=== PATIENT | male | born 1940 | race Caucasian/White ===

== ENCOUNTER 2017-12-19 22:24 | Inpatient (IN) | payer MEDICARE, OTHER ==
[~2017-12-19] VITALS: Ht 175.3 cm; Wt 120.2 kg
[2017-12-20] VITALS (11 sets, daily range): BP systolic 82–132; BP diastolic 47–61; PULSE 74–102; RESP 21–30; TEMP 98–102; O2SAT 95–100
[2017-12-20] MEDS: SODIUM CHLOR 0.9% 1000 ML INJ 1,000 ML IV SCH ×2 (01:50→19:00)
[2017-12-20] MEDS ORDERED: ACETAMINOPHEN 325 MG TAB PO PRN (02:00)
[2017-12-20] MEDS ORDERED: CHLORHEXIDINE GLUCONATE 2 % 1 PACK (2 CLOTHS) TOP PRN (02:00)
[2017-12-20] MEDS ORDERED: LACTULOSE SYRUP 20 GM/30 ML CUP PO PRN (02:00)
[2017-12-20] MEDS ORDERED: SODIUM CHLORIDE 0.9% FLUSH 10 ML FLUSH IV FLUSH PRN (02:00)
[2017-12-20] MEDS ORDERED: SENNOSIDES 8.6 MG TAB PO PRN (02:00)
[2017-12-20] MEDS ORDERED: BISACODYL 10 MG SUPP RECTAL PRN (02:00)
[2017-12-20] MEDS ORDERED: NURSING INFORMATION XX SCH (02:00)
[2017-12-20] MEDS ORDERED: ONDANSETRON HCL 4 MG/2 ML VIAL IV PUSH PRN (02:00)
[2017-12-20] MEDS ORDERED: MORPHINE SULFATE 4 MG/ML INJ IV PUSH PRN (02:00)
[2017-12-20] MEDS ORDERED: ACETAMINOPHEN/HYDROcodone 325 MG/5 MG TAB PO PRN (02:00)
[2017-12-20] MEDS ORDERED: MAGNESIUM HYDROXIDE SUSP 30 ML CUP PO PRN (02:00)
[2017-12-20] MEDS ORDERED: RESP: ALBUTEROL 2.5 MG/3 ML NEB (PRN) INH (02:00)
--- NOTE | 2017-12-20 02:14 | HHI.HP ---
HPI Service Critical Care Medicine Primary Care Physician Unknown Admission Diagnosis Right hemothorax Diagnosis: (1) Hemothorax, right Diagnosis: Principal (2) Paroxysmal atrial fibrillation Diagnosis: Principal (3) Acute blood loss anemia Diagnosis: Principal (4) Gastroesophageal reflux disease Diagnosis: Secondary (5) Hypertension Diagnosis: Principal (6) Osteoarthritis (7) Gastrointestinal stromal tumor (GIST) of duodenum Diagnosis: Secondary (8) Non Hodgkin's lymphoma Diagnosis: Principal (9) Hyponatremia Diagnosis: Secondary (10) Leukocytosis Diagnosis: Secondary (11) Essential hypertension Diagnosis: Secondary (12) Chronic kidney disease, stage 3a Diagnosis: Secondary (13) Gout Diagnosis: Secondary Chief Complaint: Presents from [facility] with large right hemothorax Travel History International Travel<30 Days: No Contact w/Intl Traveler <30 Da: No Traveled to Known Affected Are: No History of Present Illness This is a 77-year-old male. Full code. Date of admission 12/20/2017. 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 Patient received chemotherapy was noted to have a CD 38 expression by flow cytometry indicative of an unfavorable prognostic Jarvis per report. 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 Chet Chávez, paroxysmal atrial fibrillation with a [id number] of 3, Yesterday, patient presented to [facility] with shortness of breath. On chest x-ray patient was noted to have a large right pleural effusion. His apixaban was held and today patient had a right-sided chest tube placed. My 60 cm's was sent. For cultures. Studies are still pending. Patient has had 4 L of blood since placement. Patient received [facility] that facility was transferred here for possible cardiothoracic intervention. Patient is currently on 6 L simple mask at the protecting his airway. CT thorax at this facility is currently pending. Review of Systems Constitutional: COMPLAINS OF: Fatigue, DENIES: Weight gain, Weight loss Endocrine: DENIES: Polydipsia Eyes: DENIES: Diplopia Ears, nose, mouth, throat: DENIES: Tinnitus Respiratory: COMPLAINS OF: Cough, Shortness of breath, DENIES: Wheezing, Hemoptysis Cardiovascular: DENIES: Chest pain Gastrointestinal: DENIES: Abdominal pain, Black stools Genitourinary: DENIES: Dysuria, Nocturia Musculoskeletal: COMPLAINS OF: Joint pain Integumentary: DENIES: Abnormal pigmentation Hematologic/lymphatic: COMPLAINS OF: Bruising Immunologic/allergic: DENIES: Eczema Neurologic: DENIES: Abnormal gait, Headache Psychiatric: DENIES: Anxiety, Confusion Past Family Social History Allergies: Coded Allergies: No Known Allergies (Unverified , 12/20/17) Past Medical History Duodenal gastrointestinal stromal tumor Paroxysmal atrial fibrillation nonvalvular with a [id number] score 3 Essential hypertension Hyperlipidemia Follicular lymphoma grade IIIa/non-Hodgkin's lymphoma Gastroesophageal reflux disease Degenerative joint disease Osteoarthritis Elevated BMI Allergic rhinitis Constipation Chronic kidney disease stage IIIa History of nephrolithiasis Chronic oxycodone use Gout Past Surgical History Left total knee replacement Excision wide of melanoma 1976 of back without recurrence Tonsillectomy and adenoidectomy Rectal fissure repair [facility] status post resection of a fourth part duodenal gastrointestinal stromal tumor with subsequent chemotherapy with Gleevec Left vena port Reported Medications Allopurinol 300 mg p.o. every morning Amlodipine 5 mg p.o. daily Cholecalciferol 1000 units p.o. daily Dronedarone 400 mg p.o. twice daily Multivitamin 1 tablet daily Oxycodone/acetaminophen 10/325 1 tablet twice daily as needed Potassium chloride 10 mg p.o. twice daily Spironolactone 50 mg p.o. every morning Omeprazole 20 mg p.o. daily Hydrochlorothiazide 50 mg p.o. daily Apixaban 5 mg p.o. twice daily Lisinopril 40 mg p.o. daily Labetalol 200 mg p.o. twice daily Ibrutinub 140 mg p.o. daily Active Ordered Medications Reviewed in EMR Family History Father 85 with hypertension/CVA. Mother age 88 diagnosed heart disease. One sister alive in good health Social History Patient is single. is . Independent living. No alcohol tobacco or IV drug use documented Physical Exam Physical Exam GENERAL: 77-year-old male currently on a simple mask and some mild respiratory distress SKIN: Warm and dry. HEAD: Atraumatic. Normocephalic. EYES: Pupils equal and round about 3 mm bilaterally and reactive. No scleral icterus. No injection or drainage. ENT: No nasal bleeding or discharge. Mucous membranes pink and moist. NECK: Trachea midline. No JVD. CARDIOVASCULAR: Tachycardic, IR. S1, S2. Positive S3. No S4. Without murmur RESPIRATORY: Coarse rhonchorous breath sounds appreciated bilaterally anteriorly posteriorly. Diminished breath sounds right lower lobe. Posteriorly /laterally on right side placed pigtail catheter/#10 Nepalese GASTROINTESTINAL: Abdomen soft, non-tender, nondistended. Hypoactive bowel sounds appreciated MUSCULOSKELETAL: Extremities with trace bilateral upper and lower extremity edema. No obvious deformities. NEUROLOGICAL: Awake and alert. No obvious cranial nerve deficits. Motor grossly within normal limits. Five out of 5 muscle strength in the arms and legs. Normal speech. Hard of hearing Septic Shock Reassessment Septic shock perfusion: reassessment completed Caprini VTE Risk Assessment Caprini VTE Risk Assessment: Mod/High Risk (score >= 2) VTE Pharm Contraindication: Active bleeding Caprini Risk Assessment Model Point Value = 1 Point Value = 2 Point Value = 3 Point Value = 5 Age 41-60 Minor surgery BMI > 25 kg/m2 Swollen legs Varicose veins or History of unexplained or recurrent spontaneous Oral contraceptives or hormone replacement Sepsis (< 1 month) Serious lung disease, including pneumonia (< 1 month) Abnormal pulmonary function Acute myocardial infarction Congestive heart failure (< 1 month) History of inflammatory bowel disease Medical patient at bed rest Age 61-74 Arthroscopic surgery Major open surgery (> 45 min) Laparoscopic surgery (> 45 min) Malignancy Confined to bed (> 72 hours) Immobilizing plaster cast Central venous access Age >= 75 History of VTE Family history of VTE Factor V Leiden Prothrombin [id number] Lupus anticoagulant Anticardiolipin antibodies Elevated serum homocysteine Heparin-induced thrombocytopenia Other congenital or acquired thrombophilia Stroke (< 1 month) Elective arthroplasty Hip, pelvis, or leg fracture Acute spinal cord injury (< 1 month) Prophylaxis Regimen Total Risk Factor Score Risk Level Prophylaxis Regimen 0-1 Low Early ambulation 2 Moderate Order ONE of the following: *Sequential Compression Device (SCD) *Heparin 5000 units SQ BID 3-4 Higher Order ONE of the following medications: *Heparin 5000 units SQ TID *Enoxaparin/Lovenox 40 mg SQ daily (WT < 150 kg, CrCl > 30 mL/min) *Enoxaparin/Lovenox 30 mg SQ daily (WT < 150 kg, CrCl > 10-29 mL/min) *Enoxaparin/Lovenox 30 mg SQ BID (WT < 150 kg, CrCl > 30 mL/min) AND/OR *Sequential Compression Device (SCD) 5 or more Highest Order ONE of the following medications: *Heparin 5000 units SQ TID (Preferred with Epidurals) *Enoxaparin/Lovenox 40 mg SQ daily (WT < 150 kg, CrCl > 30 mL/min) *Enoxaparin/Lovenox 30 mg SQ daily (WT < 150 kg, CrCl > 10-29 mL/min) *Enoxaparin/Lovenox 30 mg SQ BID (WT < 150 kg, CrCl > 30 mL/min) AND *Sequential Compression Device (SCD) Assessment and Plan Assessment and Plan Neuro/Psych: Acetaminophen 650 mg p.o. every 6 hours as needed fever Hydrocodone/acetaminophen 5/325 1 tab acute 4 hours. Pain 1 through 5 Morphine sulfate 2 mg IV every 2 hours as needed pain 6-10 Previously on oxycodone/acetaminophen 10/325 1 tablet every 12 hours as needed pain CV: Paroxysmal atrial fibrillation with a [id number] VASc score of 3 Essential hypertension Dyslipidemia Continue dronedarone 400 mg p.o. twice daily/home medication Holding spironolactone 50 mg p.o. daily hydrochlorothiazide 50 mg p.o. daily Holding lisinopril 40 mg p.o. daily Holding amlodipine 5 mg p.o. daily/home medication Continue labetalol 200 mg p.o. twice daily but decrease to 100 mg twice daily with bleeding EKG/2D echocardiogram and troponin all pending Resp: Acute respiratory insufficiency Large right hemothorax CT thorax currently ordered. Results are pending Chest tube to -40 cm H2O. Noted placed at [facility] by IR 12/19 after holding apixaban 1 day Status post #10 Nepalese pigtail catheter placed by interventional radiology at [facility]. 4 L questionable output since placement GI: Gastroesophageal reflux disease History of duodenal gastrointestinal stromal tumor N.p.o. except for medication Pantoprazole for GI prophylaxis. On omeprazole 20 mg p.o. daily at home Docusate sodium/senna 1 tablet twice daily for bowel regimen : Goyal catheter if indicated for accurate I's and O's in a critically ill patient Endo: History of gout At home on allopurinol 300 mg p.o. daily. Adjust 100 mg daily Sliding scale insulin if indicated to maintain euglycemia Renal: Chronic kidney disease stage IIIa History of nephrolithiasis Creatinine 1.89 at [facility]. All results are currently pending Monitor urine output Accurate I's and O's Heme: Follicular lymphoma grade IIIa Chronic apixaban use Acute blood loss anemia Thrombocytopenia Leukocytosis History of duodenal gastrointestinal stromal tumor status post resection Patient has been typed and crossed CBC/coags currently pending Patient received [facility] unknown dosage per oral report at [facility]. Ibrutinib 140 mg daily currently on hold. Holding target specific oral anticoagulant in light of right hemothorax Consult medical oncology ID: Monitor for signs and sequelae of infection FEN: Hyponatremia Replace electrolytes as clinically indicated MSK: Osteoarthritis Degenerative joint disease Holding cholecalciferol 1000 units p.o. daily/home medication PT evaluate and treat Access -Utilize peripheral IV in her left vena port with Rivas needle Prophylaxis -GI -pantoprazole -DVT -SCD/holding pharmacological prophylaxis in light of right hemothorax Critical Care: The total critical care time was 35 minutes. Time to perform other separately billable procedures was not included in the critical care time. Code Status Full code Discussed Condition With Patient. Care plan discussed and all questions answered. Problem Qualifiers (1) Gastroesophageal reflux disease: Qualified Codes: K21.9 - Gastro-esophageal reflux disease without esophagitis (2) Hypertension: Qualified Codes: I10 - Essential (primary) hypertension (3) Osteoarthritis: Qualified Codes: M19.90 - Unspecified osteoarthritis, unspecified site (4) Non Hodgkin's lymphoma: Qualified Codes: C85.90 - Non-Hodgkin lymphoma, unspecified, unspecified site (5) Leukocytosis: Qualified Codes: D72.829 - Elevated white blood cell count, unspecified (6) Gout: Qualified Codes: M10.9 - Gout, unspecified Brandin Wan MD December 20, 2017 02:14
--- NOTE | 2017-12-20 02:47 | RADRPT ---
EXAM DATE/TIME: 12/20/2017 02:17 [facility] COMPARISON: No previous studies available for comparison. INDICATIONS : Hemothorax; patient has a chest tube. RADIATION DOSE: 15.16 CTDIvol (mGy) MEDICAL HISTORY : Non-responsive. SURGICAL HISTORY : Non-responsive. ENCOUNTER: Initial ACUITY: 1 day PAIN SCALE: Non-responsive LOCATION: chest TECHNIQUE: Volumetric scanning of the chest was performed. Using automated exposure control and adjustment of t he mA and/or kV according to patient size, radiation dose was kept as low as reasonably achievable to obtain optimal diagnostic quality images. DICOM format image data is available electronically for r eview and comparison. Follow-up recommendations for detected pulmonary nodules are based at a minimum on nodule size and pa tient risk factors according to Fleischner Society Guidelines. FINDINGS: LUNGS: There is extensive primarily central airspace opacity on the right and mild atelectasis in the left l dahlia base. PLEURAE: Prominent diffuse lobular thickening of the pleura on the right consistent with extensive pleural juan antonio plastic disease. Minimal dependent fluid. Posterior lateral right base pigtail thoracostomy tube in p lace. MEDIASTINUM: Prominent subcarinal lymph node and smaller lymph nodes elsewhere in the central mediastinum. Minimal pericardial fluid. Coronary calcifications. AXILLAE: Moderate lymph node prominence in the left axilla. Minimal colby prominence in the right axilla. MUSCULOSKELETAL: Within normal limits for patient age. MISCELLANEOUS: Possible mesenteric root adenopathy. CONCLUSION: Abnormal CT chest appearance. We have no comparisons at this institution. Ted Portillo MD on December 20, 2017 at 2:40 Board Certified Radiologist. This report was verified electronically.
[2017-12-20] MEDS ORDERED: VANCOMYCIN INJ 1,000 MG in SODIUM CHLOR 0.9% 250 ML INJ 250 ML IV ONE ×2 (03:00→10:00)
[2017-12-20] MEDS ORDERED: AZITHROMYCIN INJ 500 MG in SODIUM CHLOR 0.9% 250 ML INJ 250 ML IV SCH (03:00)
[2017-12-20] MEDS ORDERED: CEFEPIME INJ 2,000 MG in SODIUM CHLORIDE 0.9% INJ 100 ML IV SCH (04:00)
[2017-12-20] MEDS: CHLORHEXIDINE GLUCONATE 2 % 1 PACK (2 CLOTHS) TOP SCH (04:00)
[2017-12-20 04:08] LABS: ALBUMIN 2.4 GM/DL (3.4-5.0); AST (GOT) 16 U/L (15-37); BICARBONATE 23.9 MEQ/L (21.0-32.0); BLOOD UREA NITROGEN 28 MG/DL (7-18); CALCIUM 8.5 MG/DL (8.5-10.1); CHLORIDE 101 MEQ/L (98-107); CHOLESTEROL 99 MG/DL (120-200); CREATININE 1.73 MG/DL (0.60-1.30); GLOMERULAR FILTRATION RATE 38 ML/MIN (>89); GLUCOSE,RANDOM 114 MG/DL (74-106); MAGNESIUM 1.7 MG/DL (1.5-2.5); PHOSPHORUS 3.2 MG/DL (2.5-4.9); SODIUM (NA) 136 MEQ/L (136-145); TRIGLYCERIDES 88 MG/DL (42-150)
[2017-12-20 04:17] LABS: ALKALINE PHOSPHATASE 85 U/L (45-117); ALT (GPT) 14 U/L (12-78); CHOLESTEROL/ HDL RATIO 2.66 RATIO; FREE T3 1.25 PG/ML (2.18-3.98); FREE T4 1.26 NG/DL (0.76-1.46); HDL CHOLESTEROL 37.2 MG/DL (40.0-60.0); LDL CHOLESTEROL 44 MG/DL (0-99); TOTAL BILIRUBIN ADULT 1.5 MG/DL (0.2-1.0); TOTAL PROTEIN 4.6 GM/DL (6.4-8.2)
[2017-12-20 04:23] LABS: HEMATOCRIT 41.2 % (39.0-51.0); HEMOGLOBIN 13.7 GM/DL (13.0-17.0); MEAN CELL VOLUME 93.4 FL (80.0-100.0); MEAN CORPUSCULAR HEMOGLOBIN 31.1 PG (27.0-34.0); MEAN CORPUSCULAR HGB CONC 33.3 % (32.0-36.0); MEAN PLATELET VOLUME 8.1 FL (7.0-11.0); PLATELET COUNT 159 TH/MM3 (150-450); RED BLOOD COUNT 4.41 MIL/MM3 (4.50-5.90); RED CELL DISTRIBUTION WIDTH 16.5 % (11.6-17.2); WHITE BLOOD COUNT 18.7 TH/MM3 (4.0-11.0)
[2017-12-20 04:55] LABS: INTERNATIONAL NORMALIZED RATIO 1.1 RATIO; PROTHROMBIN TIME - PATIENT 11.3 SEC (9.8-11.6)
[2017-12-20 05:20] LABS: BANDS 1 % (0-6); LYMPHOCYTES 17 % (9-44); MONOCYTES 7 % (0-8); NEUTROPHIL # MANUAL DIFF 13.8 TH/MM3 (1.8-7.7); POLYS (SEG NEUTROPHILS) 73 % (16-70)
[2017-12-20] MEDS ORDERED: NOREPINEPHRINE-DEXTROSE DRIP 250 ML IV ONE (05:23)
[2017-12-20] MEDS ORDERED: TERBUTALINE INJ 1 MG/ML AMP SQ PRN (05:30)
[2017-12-20] MEDS ORDERED: LACTATED RINGER'S 1000 ML INJ 1,000 ML IV ONE ×2 (05:30→06:45)
[2017-12-20] MEDS ORDERED: NOREPINEPHRINE INJ 4 MG in SODIUM CHLOR 0.9% 250 ML INJ 246 ML IV PRN (05:30)
[2017-12-20 07:00] LABS: TROPONIN I 0.02 NG/ML (0.02-0.05)
[2017-12-20 07:09] LABS: BILIRUBIN, URINE NEG (NEG); BLOOD, URINE SMALL (NEG); GLUCOSE,URINE NEG (NEG); KETONE, URINE NEG (NEG); NITRITE,URINE NEG (NEG); URINE COLOR YELLOW (YELLW/STRAW); URINE LEUKOCYTE ESTERASE NEG (NEG)
[2017-12-20 07:18] LABS: HYALINE CAST, URINE 8 /lpf (RARE); MUCUS URINE FEW /lpf (OCC); SQUAMOUS EPITHELIAL CELL URINE 1 /hpf (0-5)
[2017-12-20 07:42] LABS: CREATININE, RANDOM URINE 74.4 MG/DL
[2017-12-20 07:56] LABS: HEMATOCRIT 36.8 % (39.0-51.0); HEMOGLOBIN 12.4 GM/DL (13.0-17.0)
[2017-12-20] MEDS ORDERED: SODIUM CHLOR 0.9% 1000 ML INJ 1,000 ML IV ONE (08:00)
[2017-12-20] MEDS: PIPERACIL-TAZO 3.375 GM PREMIX 50 ML IV SCH ×3 (08:00→20:21)
[2017-12-20] MEDS ORDERED: Vancomycin Consult Pharmacy 1 EA OTHER SCH (08:00)
[2017-12-20] MEDS: VASOPRESSIN INJ 40 UNITS in DEXTROSE 5% IN WATER 100ML INJ 98 ML IV SCH ×2 (08:36)
[2017-12-20] MEDS: PANTOPRAZOLE SODIUM 40 MG VIAL IV PUSH SCH (09:00)
[2017-12-20] MEDS: DOCUSATE SODIUM 50 MG/SENNA 8.6 MG TAB PO SCH ×2 (09:00→20:22)
[2017-12-20] MEDS ORDERED: DRONEDARONE 400 MG TAB PO SCH (09:00)
[2017-12-20] MEDS: LABETALOL HCL 100 MG TAB PO SCH ×2 (09:00→20:22)
[2017-12-20] MEDS: ALLOPURINOL 100 MG TAB PO SCH (09:00)
[2017-12-20] MEDS: SODIUM CHLORIDE 0.9% FLUSH 10 ML FLUSH IV FLUSH SCH ×2 (09:00→20:51)
[2017-12-20] MEDS ORDERED: HYDROCORTISONE SOD SUCCINATE 250 MG VIAL IV SCH (10:00)
[2017-12-20] MEDS: methylPREDNISolone SOD SUCC 125 MG/2 ML VIAL IV PUSH SCH ×2 (10:15→20:22)
--- NOTE | 2017-12-20 10:58 | MB ---
cc: Awais Singh MD DATE: 12/20/2017 REASON FOR CONSULTATION: A 77-year-old male with a history of chronic lymphocytic leukemia, admitted with bilateral pulmonary infiltrates, hypotension and a working diagnosis of pneumonia. PATIENT PROFILE: The patient is a 77-year-old white male. He is single and . He was born in [place]. He has lived in [place] for 50 years. He is retired. He had worked for [employer]. 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 He had 1 son who is . The patient lives alone and is independent. HISTORY OF PRESENT ILLNESS: The patient is a 77-year-old male who was diagnosed with chronic lymphocytic leukemia in 2016. He was treated with chemotherapy for 6 months and I believe this was fludarabine, Cytoxan and Rituxan. Apparently, this worked for a while. Approximately a year ago, he was started on the drug ibrutinib at full dose. The dose had to be decreased where he is now taking only 1 tablet a day due to an interaction with Multaq which requires a lower dose. To the best of his knowledge, his disease is well controlled. He has had episodes of paroxysmal atrial fibrillation. For this reason, he takes Eliquis and the Multaq. The Eliquis dose has been reduced to 2.5 b.i.d. because of bleeding episodes. Ibrutinib is known to cause bleeding due to platelet dysfunction and this worsens the bleeding tendency when using eliquis He dates his immediate problem back to about 4 weeks ago. He developed rapid heart rate, cough and shortness of breath. All of these were progressive. He did not seek medical care until recently and then saw his rotary kiln operator who arranged for hospitalization, and he has subsequently been transferred to [facility], acutely ill with pneumonia on CT scan and hypotension. He is on multiple antibiotics. I have been asked to see him because of his current condition and also because of his history of chronic lymphocytic leukemia. PAST SURGICAL HISTORY: 1. Tonsillectomy. 2. Left knee replacement approximately 2006. 3. Gastrointestinal stromal cell tumor of the duodenum, removed in approximately 2002, followed by 2 years of Gleevec. 4. Melanoma removed from the back in 1971, without evidence of reoccurrence. PAST MEDICAL HISTORY: 1. Diagnosis of chronic lymphocytic leukemia made in approximately 2015, treated with I believe fludarabine, Cytoxan, and Rituxan and currently on ibrutinib for approximately 1 year, according to his history. 2. Atrial fibrillation. 3. Osteoarthritis. 4. Hypertension. 5. Gout. MEDICATIONS PRIOR TO ADMISSION: 1. Eliquis 2.5 p.o. b.i.d. 2. Allopurinol 300 a day. 3. Multaq 400 b.i.d. 4. Lisinopril. 5. Labetalol. 6. Amlodipine. 7. Ibrutinib 1 tablet a day. I am uncertain of the dose. ALLERGIES: NONE. FAMILY HISTORY: Noncontributory. REVIEW OF SYSTEMS: VISION: He has reading glasses. HEARING: Markedly diminished. CARDIOVASCULAR: Occasional palpitations. RESPIRATORY: Severe shortness of breath and cough. GASTROINTESTINAL: 100 pound weight loss over the past year and a half. He has had morbid obesity prior to this and believes that he may have lost weight following the of his son, where he just ate less and cared to eat less and appetite is also decreased. GENITOURINARY: No dysuria or frequency. MUSCULOSKELETAL: Some minor joint pain, primarily right knee. NEUROLOGIC: Generalized but not focal weakness. PSYCHIATRIC: Notable for depression over the loss of his son. DIAGNOSTIC STUDIES: Laboratory tests 12/20/2017: Hemoglobin 13; hematocrit 41; white count 18,000; platelets 159,000; 73% neutrophils and 17% lymphocytes. BUN 28, creatinine 1.73. Estimated GFR is 38 mL. Total bilirubin 1.5 with normal AST, ALT and alkaline phosphatase. Albumin is 2.4. Amylase 474. TSH 1.5. The most revealing study as the CT scan of the thorax without IV contrast. Images were reviewed. There is extensive bilateral interstitial airspace disease, much worse in the right than the left, with a ground glass appearance. There is pleural thickening on the right with some degree of nodularity. There are prominent subcarinal lymph nodes and smaller lymph nodes in the central mediastinum. He has a right-sided chest tube. The pleural fluid has been sent for cell count, diff and cytology. PHYSICAL EXAMINATION: GENERAL: Reveals a gentleman who is hard of hearing. He is wearing a mask. He is able to communicate effectively, impaired only by his difficulty with hearing. VITAL SIGNS: Blood pressure is 88/50, pulse is 90 and irregular, O2 saturation 94%. HEENT: Head is normocephalic. Sclerae and conjunctivae are normal. Oropharynx: There is some dried blood at the back of the pharynx. hard of hearing LYMPHATICS: I cannot any adenopathy. HEART: Irregularly irregular rhythm, rate 90. LUNGS: Reveal mild bilateral rhonchi. right chest tube ABDOMEN: Obese. No obvious hepatosplenomegaly. EXTREMITIES: Trace edema. MUSCULOSKELETAL: No bone pain. NEUROLOGIC: No weakness. Cognition, affect normal. SKIN: Unremarkable. ASSESSMENT AND PLAN: 1. The patient presents with a 4-week history of cough, shortness of breath, no fever, and no sputum production. He has extensive infiltrates in the lung, more so on the right than the left. What is odd is that there has been no fever or sputum production. Infectious pneumonia is certainly a possibility, especially given the hypotension and rapid deterioration. Another possibility would be an inflammatory pneumonitis, which has been progressive. There are a number of case reports of this occurring with ibrutinib and it also can occur with Multaq. He does not have any lobar consolidation and I feel that this possibility needs to be entertained and therefore recommendations would be: A. Discontinue Multaq. B. Discontinue ibrutinib. C. Treat with steroids. D. It is certainly reasonable to continue the antibiotics as we cannot afford to miss anything. E: if no improvement consider viral/fungal infection 2. He has a history of chronic lymphocytic leukemia. This is the same as small lymphocytic lymphoma. He has adenopathy in the mediastinum and a small amount of adenopathy in the axilla. I suspect that this is related to his underlying chronic lymphocytic leukemia/small lymphocytic lymphoma. This does not require intervention. He has had a pleural effusion. He has pleural thickening and he has nodularity along the pleura. I await the results of the cytology and cell count to determine whether this is active lymphoma/chronic lymphocytic leukemia or even the possibility of a Mello's transformation, which would be a large cell lymphoma. Above discussed with Critical Care- Se. Jean. We will follow with you and hopefully he will respond to the antibiotics, steroids and will await the flow cytometry. MD DOMINGO Galo/TEODORO , 10:03 AM , 10:57 AM HARJIT
[2017-12-20] MEDS: NOREPINEPHRINE INJ 4 MG in SODIUM CHLOR 0.9% 250 ML INJ 246 ML IV PRN ×2 (11:09→16:14)
[2017-12-20 12:45] LABS: PLEURAL FLUID RBC 100000 /MM3 (0-0); PLEURAL FLUID WBC 13000 /MM3 (0-10)
[2017-12-20 12:47] LABS: PLEURAL FLUID LYMPHS 90 %; PLEURAL FLUID MONOS 7 %; PLEURAL FLUID POLYS (SEGS) 3 %
[2017-12-20 13:40] LABS: HEMOGLOBIN 12.5 GM/DL (13.0-17.0)
--- NOTE | 2017-12-20 14:04 | EKG ---
Date Performed: 12/20/2017 Time Performed: 10:32:05 PTAGE: 77 years EKG: ATRIAL FIBRILLATION LOW QRS VOLTAGE INFERIOR MYOCARDIAL INFARCTION , PROBABLY OLD ANTEROSEP JAYDA MYOCARDIAL INFARCTION , PROBABLY OLD ABNORMAL ECG NO PREVIOUS TRACING DOCTOR: Sandor Schneider Interpretating Date/Time 12/20/2017 14:03:14
[2017-12-20 18:11] LABS: HEMATOCRIT 37.4 % (39.0-51.0); HEMOGLOBIN 12.6 GM/DL (13.0-17.0)
[2017-12-21] VITALS (14 sets, daily range): BP systolic 91–108; BP diastolic 50–63; PULSE 56–81; RESP 22–25; TEMP 97.4–98.3; O2SAT 93–97
[2017-12-21] MEDS: PIPERACIL-TAZO 3.375 GM PREMIX 50 ML IV SCH ×4 (00:59→20:47)
[2017-12-21] MEDS: AZITHROMYCIN INJ 500 MG in SODIUM CHLOR 0.9% 250 ML INJ 250 ML IV SCH (02:46)
[2017-12-21] MEDS: VASOPRESSIN INJ 40 UNITS in DEXTROSE 5% IN WATER 100ML INJ 98 ML IV SCH ×4 (02:48→14:02)
[2017-12-21] MEDS: NOREPINEPHRINE INJ 4 MG in SODIUM CHLOR 0.9% 250 ML INJ 246 ML IV PRN ×2 (02:52→22:30)
[2017-12-21] MEDS: CHLORHEXIDINE GLUCONATE 2 % 1 PACK (2 CLOTHS) TOP SCH (04:00)
[2017-12-21 05:15] LABS: AUTOMATED NEUTROPHIL # 7.4 TH/MM3 (1.8-7.7); BASOPHIL # 0.1 TH/MM3 (0-0.2); BASOPHIL % 0.4 % (0.0-2.0); HEMATOCRIT 33.7 % (39.0-51.0); HEMOGLOBIN 11.4 GM/DL (13.0-17.0); LYMPH % 52.4 % (9.0-44.0); LYMPHOCYTE # 9.2 TH/MM3 (1.0-4.8); MEAN CELL VOLUME 93.5 FL (80.0-100.0); MEAN CORPUSCULAR HEMOGLOBIN 31.7 PG (27.0-34.0); MEAN CORPUSCULAR HGB CONC 33.9 % (32.0-36.0); MEAN PLATELET VOLUME 7.6 FL (7.0-11.0); MONO % 5.2 % (0.0-8.0); MONOCYTE # 0.9 TH/MM3 (0-0.9); PLATELET COUNT 157 TH/MM3 (150-450); RED BLOOD COUNT 3.61 MIL/MM3 (4.50-5.90); RED CELL DISTRIBUTION WIDTH 16.7 % (11.6-17.2); WHITE BLOOD COUNT 17.6 TH/MM3 (4.0-11.0)
[2017-12-21 05:33] LABS: INTERNATIONAL NORMALIZED RATIO 1.2 RATIO; PROTHROMBIN TIME - PATIENT 11.9 SEC (9.8-11.6)
[2017-12-21 05:35] LABS: ALBUMIN 2.1 GM/DL (3.4-5.0); AST (GOT) 9 U/L (15-37); BICARBONATE 19.3 MEQ/L (21.0-32.0); BLOOD UREA NITROGEN 30 MG/DL (7-18); CALCIUM 8.2 MG/DL (8.5-10.1); CHLORIDE 105 MEQ/L (98-107); CREATININE 1.55 MG/DL (0.60-1.30); GLOMERULAR FILTRATION RATE 43 ML/MIN (>89); GLUCOSE,RANDOM 144 MG/DL (74-106); MAGNESIUM 1.8 MG/DL (1.5-2.5); SODIUM (NA) 137 MEQ/L (136-145)
[2017-12-21 05:42] LABS: ALKALINE PHOSPHATASE 65 U/L (45-117); ALT (GPT) 12 U/L (12-78); PHOSPHORUS 3.7 MG/DL (2.5-4.9); RANDOM VANCOMYCIN 11.4 COMMENT; TOTAL PROTEIN 4.4 GM/DL (6.4-8.2)
--- NOTE | 2017-12-21 06:29 | RADRPT ---
EXAM DATE/TIME: 12/21/2017 03:28 [facility] COMPARISON: CT THORAX W/O CONTRAST, December 20, 2017, 2:17. INDICATIONS : Shortness of breath. MEDICAL HISTORY : Non-responsive SURGICAL HISTORY : Non-responsive ENCOUNTER: Initial ACUITY: 2 days PAIN SCORE: Non-responsive. LOCATION: Bilateral chest FINDINGS: Left chest port and right base pigtail thoracostomy tube are present. There is diffuse parenchymal di sease and pleural thickening/effusion on the right. Elevated diaphragm and basilar consolidation on t he left. Heart size appears grossly normal. CONCLUSION: Worsening aeration in the left lung base Ted Portillo MD on December 21, 2017 at 6:26 Board Certified Radiologist. This report was verified electronically.
[2017-12-21 07:59] LABS: LYMPHOCYTES 66 % (9-44); MONOCYTES 2 % (0-8); MYELOCYTES 1 % (0-0); NEUTROPHIL # MANUAL DIFF 5.6 TH/MM3 (1.8-7.7); POLYS (SEG NEUTROPHILS) 31 % (16-70)
[2017-12-21 08:00] LABS: ACANTHOCYTES OCC (NORMAL); SMUDGE CELLS PRESENT PRESENT
[2017-12-21] MEDS: DOCUSATE SODIUM 50 MG/SENNA 8.6 MG TAB PO SCH ×2 (08:01→20:48)
[2017-12-21] MEDS: LABETALOL HCL 100 MG TAB PO SCH ×2 (08:01→20:49)
[2017-12-21] MEDS: PANTOPRAZOLE SODIUM 40 MG VIAL IV PUSH SCH (08:44)
[2017-12-21] MEDS: ALLOPURINOL 100 MG TAB PO SCH (08:44)
[2017-12-21] MEDS: SODIUM CHLORIDE 0.9% FLUSH 10 ML FLUSH IV FLUSH SCH ×2 (08:44→20:48)
[2017-12-21] MEDS: methylPREDNISolone SOD SUCC 125 MG/2 ML VIAL IV PUSH SCH ×2 (08:44→20:48)
--- NOTE | 2017-12-21 09:59 | PD.CAR.PN ---
CVT Progress Note Subjective/Hospital Course: Pt examined and chart reviewed. Full consult dictated. Given adequate drainage of the right pleural fluid with the percutaneous catheter, no surgical intervention needed at the present time. Will follow with you. Thanks Objective: Vital Signs Date Time Temp Pulse Resp B/P (MAP) Pulse Ox O2 Delivery O2 Flow Rate FiO2 12/21/17 09:08 70 102/56 12/21/17 08:13 95 Simple Mask 6.00 12/21/17 08:02 74 103/56 12/21/17 08:00 97.5 70 22 103/56 (72) 93 12/21/17 08:00 69 12/21/17 07:00 98 Simple Mask 6.00 12/21/17 06:00 81 12/21/17 04:00 98.3 71 25 104/57 (73) 94 12/21/17 04:00 72 12/21/17 02:52 75 100/59 12/21/17 02:48 77 100/59 12/21/17 02:00 80 12/21/17 00:00 98.1 74 25 108/63 (78) 94 12/21/17 00:00 78 12/20/17 22:00 77 12/20/17 20:00 98.0 76 21 120/61 (80) 96 12/20/17 20:00 96 Simple Mask 5.00 12/20/17 20:00 76 12/20/17 18:00 74 12/20/17 17:00 75 118/60 12/20/17 16:14 75 102/60 12/20/17 16:00 74 12/20/17 16:00 98.4 74 24 102/60 (74) 97 12/20/17 15:00 78 107/62 12/20/17 14:00 74 12/20/17 12:00 98.4 80 23 95/53 (67) 97 12/20/17 12:00 80 12/20/17 11:09 79 116/65 12/20/17 10:00 96 Nasal Cannula 5.00 12/20/17 10:00 91 Labs: Laboratory Tests Test 12/21/17 04:55 White Blood Count 17.6 TH/MM3 (4.0-11.0) Red Blood Count 3.61 MIL/MM3 (4.50-5.90) Hemoglobin 11.4 GM/DL (13.0-17.0) Hematocrit 33.7 % (39.0-51.0) Mean Corpuscular Volume 93.5 FL (80.0-100.0) Mean Corpuscular Hemoglobin 31.7 PG (27.0-34.0) Mean Corpuscular Hemoglobin Concent 33.9 % (32.0-36.0) Red Cell Distribution Width 16.7 % (11.6-17.2) Platelet Count 157 TH/MM3 (150-450) Mean Platelet Volume 7.6 FL (7.0-11.0) Neutrophils (%) (Auto) 42.0 % (16.0-70.0) Lymphocytes (%) (Auto) 52.4 % (9.0-44.0) Monocytes (%) (Auto) 5.2 % (0.0-8.0) Eosinophils (%) (Auto) 0.0 % (0.0-4.0) Basophils (%) (Auto) 0.4 % (0.0-2.0) Neutrophils # (Auto) 7.4 TH/MM3 (1.8-7.7) Lymphocytes # (Auto) 9.2 TH/MM3 (1.0-4.8) Monocytes # (Auto) 0.9 TH/MM3 (0-0.9) Eosinophils # (Auto) 0.0 TH/MM3 (0-0.4) Basophils # (Auto) 0.1 TH/MM3 (0-0.2) CBC Comment AUTO DIFF Differential Total Cells Counted 100 Neutrophils % (Manual) 31 % (16-70) Lymphocytes % 66 % (9-44) Monocytes % 2 % (0-8) Neutrophils # (Manual) 5.6 TH/MM3 (1.8-7.7) Myelocytes 1 % (0-0) Differential Comment FINAL DIFF MANUAL Smudge Cells PRESENT Platelet Estimate NORMAL (NORMAL) Platelet Morphology Comment NORMAL (NORMAL) Acanthocytes OCC (NORMAL) Prothrombin Time 11.9 SEC (9.8-11.6) Prothromb Time International Ratio 1.2 RATIO Activated Partial Thromboplast Time 30.5 SEC (24.3-30.1) Blood Urea Nitrogen 30 MG/DL (7-18) Creatinine 1.55 MG/DL (0.60-1.30) Random Glucose 144 MG/DL (74-106) Total Protein 4.4 GM/DL (6.4-8.2) Albumin 2.1 GM/DL (3.4-5.0) Calcium Level 8.2 MG/DL (8.5-10.1) Phosphorus Level 3.7 MG/DL (2.5-4.9) Magnesium Level 1.8 MG/DL (1.5-2.5) Alkaline Phosphatase 65 U/L (45-117) Aspartate Amino Transf (AST/SGOT) 9 U/L (15-37) Alanine Aminotransferase (ALT/SGPT) 12 U/L (12-78) Total Bilirubin 1.0 MG/DL (0.2-1.0) Sodium Level 137 MEQ/L (136-145) Potassium Level 3.7 MEQ/L (3.5-5.1) Chloride Level 105 MEQ/L (98-107) Carbon Dioxide Level 19.3 MEQ/L (21.0-32.0) Anion Gap 13 MEQ/L (5-15) Estimat Glomerular Filtration Rate 43 ML/MIN (>89) Lactic Acid Level 1.1 mmol/L (0.4-2.0) Random Vancomycin Level 11.4 COMMENT Result Diagram: 12/21/17 0455 12/21/17 0455 Laine Dubon MD December 21, 2017 09:59
--- NOTE | 2017-12-21 10:31 | MB ---
cc: Laine Dubon MD, Richard MD DATE: 12/21/2017 REFERRING PHYSICIAN: Dr. Wan. REASON FOR CONSULTATION: Right hemothorax. HISTORY OF PRESENT ILLNESS: Mr. Duckworth is a 77-year-old gentleman with an extensive history of chronic lymphocytic leukemia, diagnosed in 2014 via a right axillary lymph node biopsy. The patient has been on chemotherapy per Dr. Singh and was now transferred here from [facility] with progressive complaints of shortness of breath and cough. Examination and evaluation at the outside facility, including a chest x-ray and CT, revealed a large right pleural effusion with bilateral parenchymal infiltrates. A percutaneous small catheter drain was placed with drainage of the pleural effusion, and he was transferred for further management. I am now being consulted for further assistance and evaluation of the pleural effusion. At the present time, he is on supplemental oxygen therapy, but he feels much better, lying in his bed and in no apparent distress. He reports his shortness of breath has improved. PAST MEDICAL HISTORY: 1. Significant for non-Hodgkin lymphoma, as described above. 2. Atrial fibrillation. 3. Hypertension. 4. Hyperlipidemia. 5. GERD. 6. DJD. 7. Osteoarthritis. 8. Chronic kidney disease. 9. Gout. 10. Chronic oxycodone use. 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 12. Hyperlipidemia. PAST SURGICAL HISTORY: 1. Remarkable for a left total knee replacement. 2. Excision of melanoma. 3. Tonsillectomy and adenoidectomy. 4. Rectal fissure repair. 5. Resection of gastrointestinal stromal tumor with subsequent chemotherapy. 6. Axillary lymph node biopsy as described above. ALLERGIES: THE PATIENT REPORTS NO KNOWN DRUG ALLERGIES. ADMISSION MEDICATIONS: 1. Include Eliquis. 2. Allopurinol. 3. Multaq. 4. Lisinopril. 5. Labetalol. 6. Amlodipine. 7. Ibrutinib. FAMILY HISTORY: Noncontributory. SOCIAL HISTORY: Denies any history of alcohol use or illicit drug use. REVIEW OF SYSTEMS: As above, all other parameters are negative. PHYSICAL EXAMINATION: VITAL SIGNS: He is 175 cm tall, weighs 111 kg, blood pressure is 102/56 with a heart rate of 70 which is regular, respiratory rate is 20 and he is afebrile. He is sating 95% on 6 liters simple mask. HEENT: Normocephalic, atraumatic. Pupils nonreactive. Extraocular muscles intact. NECK: No cervical lymphadenopathy, carotid bruits or JVD. HEART: Regular rate and rhythm. Normal S1, S2, without gallops, rubs or murmurs. LUNGS: He had decreased breath sounds in both bases with bilateral rhonchi. ABDOMEN: Obese, otherwise soft, nontender, and nondistended. Normoactive bowel sounds. No hepatosplenomegaly. EXTREMITIES: Bilateral lower extremity pulses are intact without cyanosis, clubbing or edema. No venous varicosities. NEUROLOGIC: Intact with no focal deficit. IMPRESSION: 1. Right pleural effusion, status post percutaneous drainage. 2. Chronic lymphocytic leukemia, on chemotherapy. 3. Atrial fibrillation. 4. Osteoarthritis. 5. Hypertension. 6. Gout. 7. Gastrointestinal tumor. PLAN: After reviewing the patient's radiographic imaging here including chest x-ray and chest CT, it appears that the right pleural effusion is adequately drained by the percutaneous drain at this point. No further surgical intervention is required in that regard. Should the drainage output continue to persist or recur, a surgical intervention at that point would be indicated in terms of either complete drainage or performing pleurodesis. In the meantime, continue management as you are already doing for underlying diagnosis of pneumonia. I will standby for now and continue to followup with you. Thank you for allowing me to participate in the care of this patient. MD TAYLER Workman/TEODORO , 10:05 AM , 10:29 AM HARJIT
[2017-12-21] MEDS ORDERED: VANCOMYCIN INJ 2,000 MG in SODIUM CHLORID 0.9% 500 ML INJ 500 ML IV ONE (11:00)
--- NOTE | 2017-12-21 11:57 | PD.ONC.PN ---
Subjective Subjective Remarks Afebrile Pt reports he has had some dizziness Reports it as he feels like the "room is spinning" States this has been ongoing for some years, however he has noticed it more over the last few weeks He states his breathing is overall much improved He remains on several vasopressors Objective Data Date Time Temp Pulse Resp B/P (MAP) Pulse Ox O2 Delivery O2 Flow Rate FiO2 12/21/17 09:08 70 102/56 12/21/17 08:13 95 Simple Mask 6.00 12/21/17 08:02 74 103/56 12/21/17 08:00 97.5 70 22 103/56 (72) 93 12/21/17 08:00 69 12/21/17 07:00 98 Simple Mask 6.00 12/21/17 06:00 81 12/21/17 04:00 98.3 71 25 104/57 (73) 94 12/21/17 04:00 72 12/21/17 02:52 75 100/59 12/21/17 02:48 77 100/59 12/21/17 02:00 80 12/21/17 00:00 98.1 74 25 108/63 (78) 94 12/21/17 00:00 78 12/20/17 22:00 77 12/20/17 20:00 98.0 76 21 120/61 (80) 96 12/20/17 20:00 96 Simple Mask 5.00 12/20/17 20:00 76 12/20/17 18:00 74 12/20/17 17:00 75 118/60 12/20/17 16:14 75 102/60 12/20/17 16:00 74 12/20/17 16:00 98.4 74 24 102/60 (74) 97 12/20/17 15:00 78 107/62 12/20/17 14:00 74 12/20/17 12:00 98.4 80 23 95/53 (67) 97 12/20/17 12:00 80 12/21/17 12/21/17 12/21/17 06:59 14:59 22:59 Intake Total 450 ml Output Total 800 ml Balance -350 ml Result Diagram: 12/21/17 0455 12/21/17 0455 Laboratory Results Laboratory Tests Test 12/20/17 13:08 12/20/17 13:20 12/20/17 17:40 12/21/17 04:55 Blood Gas Puncture Site RT RADIAL Blood Gas Patient Temperature 98.6 Blood Gas HCO3 20 mmol/L Blood Gas Base Excess -4.0 mmol/L Blood Gas Oxygen Saturation 94 % Arterial Blood pH 7.37 Arterial Blood Partial Pressure CO2 36 mmHg Arterial Blood Partial Pressure O2 81 mmHg Arterial Blood Oxygen Content 16.6 Vol % Arterial Blood Carboxyhemoglobin 1.7 % Arterial Blood Methemoglobin 0.9 % Blood Gas Hemoglobin 12.6 G/DL Oxygen Delivery Device MASK Blood Gas Liter Flow 6 L/M Hemoglobin 12.5 GM/DL 12.6 GM/DL 11.4 GM/DL Hematocrit 38.0 % 37.4 % 33.7 % White Blood Count 17.6 TH/MM3 Red Blood Count 3.61 MIL/MM3 Mean Corpuscular Volume 93.5 FL Mean Corpuscular Hemoglobin 31.7 PG Mean Corpuscular Hemoglobin Concent 33.9 % Red Cell Distribution Width 16.7 % Platelet Count 157 TH/MM3 Mean Platelet Volume 7.6 FL Neutrophils (%) (Auto) 42.0 % Lymphocytes (%) (Auto) 52.4 % Monocytes (%) (Auto) 5.2 % Eosinophils (%) (Auto) 0.0 % Basophils (%) (Auto) 0.4 % Neutrophils # (Auto) 7.4 TH/MM3 Lymphocytes # (Auto) 9.2 TH/MM3 Monocytes # (Auto) 0.9 TH/MM3 Eosinophils # (Auto) 0.0 TH/MM3 Basophils # (Auto) 0.1 TH/MM3 CBC Comment AUTO DIFF Differential Total Cells Counted 100 Neutrophils % (Manual) 31 % Lymphocytes % 66 % Monocytes % 2 % Neutrophils # (Manual) 5.6 TH/MM3 Myelocytes 1 % Differential Comment FINAL DIFF MANUAL Smudge Cells PRESENT Platelet Estimate NORMAL Platelet Morphology Comment NORMAL Acanthocytes OCC Prothrombin Time 11.9 SEC Prothromb Time International Ratio 1.2 RATIO Activated Partial Thromboplast Time 30.5 SEC Blood Urea Nitrogen 30 MG/DL Creatinine 1.55 MG/DL Random Glucose 144 MG/DL Total Protein 4.4 GM/DL Albumin 2.1 GM/DL Calcium Level 8.2 MG/DL Phosphorus Level 3.7 MG/DL Magnesium Level 1.8 MG/DL Alkaline Phosphatase 65 U/L Aspartate Amino Transf (AST/SGOT) 9 U/L Alanine Aminotransferase (ALT/SGPT) 12 U/L Total Bilirubin 1.0 MG/DL Sodium Level 137 MEQ/L Potassium Level 3.7 MEQ/L Chloride Level 105 MEQ/L Carbon Dioxide Level 19.3 MEQ/L Anion Gap 13 MEQ/L Estimat Glomerular Filtration Rate 43 ML/MIN Lactic Acid Level 1.1 mmol/L Random Vancomycin Level 11.4 COMMENT Culture Results Microbiology Date/Time Source Procedure Growth Status 12/20/17 03:48 Blood Peripheral Aerobic Blood Culture - Preliminary NO GROWTH IN 1 DAY Resulted 12/20/17 03:48 Blood Peripheral Anaerobic Blood Culture - Preliminary NO GROWTH IN 1 DAY Resulted 12/20/17 03:42 Blood Peripheral Aerobic Blood Culture - Preliminary NO GROWTH IN 1 DAY Resulted 12/20/17 03:42 Blood Peripheral Anaerobic Blood Culture - Preliminary NO GROWTH IN 1 DAY Resulted 12/20/17 10:30 Fluid Pleural Fluid Fungal Smear - Final NO FUNGAL ELEMENTS SEEN. Resulted 12/20/17 10:30 Fluid Pleural Fluid Fungal Culture Pending Resulted 12/20/17 10:30 Fluid Pleural Fluid Acid Fast Stain Pending Received 12/20/17 10:30 Fluid Pleural Fluid Mycobacterial Culture Pending Received 12/20/17 10:30 Fluid Pleural Fluid Gram Stain - Final Resulted 12/20/17 10:30 Fluid Pleural Fluid Body Fluid Culture Pending Resulted 12/20/17 10:44 Nasal Aspirate Influenza Types A,B Antigen (MARGO) - Final NEGATIVE FOR FLU A AND B ANTIGEN.... Complete 12/20/17 05:45 Urine Random Urine Legionella Antigen - Final PRESUMPTIVE NEGATIVE FOR LEGIONELLA P... Complete 12/20/17 05:45 Urine Random Urine Streptococcus pneumoniae Antigen (M - Final PRESUMPTIVE NEGATIVE FOR STREPTOCOCCU... Complete Imaging Studies Last 24 hours Impressions Chest X-Ray 12/21/17 0600 Signed Impressions: Service Date/Time: Thursday, December 21, 2017 03:28 - CONCLUSION: Worsening aeration in the left lung base Ted Portillo MD Administered Medications Medications (Trade) Dose Ordered Sig/Helio Route PRN Reason Start Time Stop Time Status Last Admin Dose Admin Sodium Chloride 1,000 ml @ 84 mls/hr [id number] IV 12/20/17 01:50 12/20/17 19:00 Sodium Chloride (NS Flush) 2 ml BID IV FLUSH 12/20/17 09:00 12/21/17 08:44 Pantoprazole Sodium (Protonix Inj) 40 mg DAILY IV PUSH 12/20/17 09:00 12/21/17 08:44 Miscellaneous Information ([facility] Nursing Information) 1 [id number] XX 12/20/17 02:00 12/20/17 02:00 Chlorhexidine Gluconate (Chlorhexidine 2% Cloth) 3 pack Taper DAILY@04 TOP 12/20/17 04:00 12/16/18 03:59 12/20/17 04:00 Senna/Docusate Sodium (Aubree-Colace) 1 tab BID PO 12/20/17 09:00 12/20/17 20:22 Allopurinol (Zyloprim) 100 mg DAILY PO 12/20/17 09:00 12/21/17 08:44 Norepinephrine Bitartrate 4 mg/ Sodium Chloride 250 ml @ 7.5 mls/hr TITRATE PRN IV Maintain MAP > 65 mmHg 12/20/17 06:30 12/21/17 02:52 Piperacillin Sod/ Tazobactam Sod 50 ml @ 100 mls/hr Q6H IV 12/20/17 08:00 12/21/17 08:44 Azithromycin 500 mg/Sodium Chloride 250 ml @ 250 mls/hr Q24H IV 12/21/17 03:00 12/21/17 02:46 Vasopressin 40 units/Dextrose 100 ml @ 6 mls/hr [id number] IV 12/20/17 09:00 12/21/17 02:48 Methylprednisolone Sodium Succinate (SoluMEDROL INJ) 60 mg Q12HR IV PUSH 12/20/17 10:15 12/21/17 08:44 Vancomycin HCl 2000 mg/Sodium Chloride 520 ml @ 257.5 mls/ hr ONCE ONCE IV 12/21/17 11:00 12/21/17 13:01 12/21/17 11:05 Objective Remarks GENERAL: Older male resting in bed asleep on approach. He wakens easily to verbal stimuli SKIN: Warm and dry. HEAD: Normocephalic. +AKUTAN EYES: No injection or drainage. NECK: Supple, trachea midline. CARDIOVASCULAR: Regular rate and rhythm without murmurs. RESPIRATORY: Clear anteriorly. On 6 L simple mask. GASTROINTESTINAL: Abdomen soft, non-tender, nondistended. EXTREMITIES: No cyanosis, or edema. MUSCULOSKELETAL: Generalized weakness NEUROLOGICAL: No obvious focal deficit. Awake, alert, and oriented x3. Assessment/Plan Assessment 77-year-old male with history of CLL admitted for what is thought to be pneumonia Plan The patient remains on several vasopressors. His chest x-ray shows worsening aeration. If this is indeed due to the ibrutinib it will take some time for the symptoms to reverse. Continue steroids. Add meclizine for occasional vertigo. We also reviewed that the ibrutinib can cause dizziness and I discussed with the patient that this may improve as well. Attending Statement The exam, history, and the medical decision-making described in the above note were completed with the assistance of the mid-level provider. I reviewed and agree with the findings presented. I attest that I had a [id number] encounter with the patient on the same day, and personally performed and documented my assessment and findings in the medical record. he feels better and looks better but chest film looks bad. It will require several days to see if there is improvement with steroids and antibiotics. still no fevers which speaks against infection. will repeat chest film in several days. increased percentage lymphocytes in pleural fluid suggests involvement by CLL. Await cytology and if not diagnostic can do do flow on pleural fluid. Mely Rogers December 21, 2017 11:57 Awais Singh MD December 21, 2017 15:33
[2017-12-21] MEDS ORDERED: MECLIZINE HCL 25 MG TAB PO PRN (12:00)
--- NOTE | 2017-12-21 12:37 | HHI.CCPN ---
Subjective Remarks/Hospital Course 12/20: This is a 77-year-old male. Full code. Date of admission 12/20. 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 Patient received chemotherapy was noted to have a CD 38 expression by flow cytometry indicative of an unfavorable prognostic Jarvis per report. And was on [facility] his closer on Dr. Chet Chávez, paroxysmal atrial fibrillation with a [id number] of 3, Yesterday, patient presented to [facility] with shortness of breath. On chest x-ray patient was noted to have a large right pleural effusion. His apixaban was held and today patient had a right-sided chest tube placed. My 60 cm's was sent. For cultures. Studies are still pending. Patient has had 4 L of blood since placement. Patient received [facility] that facility was transferred here for possible cardiothoracic intervention. Patient is currently on 6 L simple mask at the protecting his airway. 12/21: Resting in bed currently on facemask. Right-sided chest tube in place. Still slightly short of breath. States that his breathing is slightly better. Objective Vital Signs Date Time Temp Pulse Resp B/P (MAP) Pulse Ox O2 Delivery O2 Flow Rate FiO2 12/21/17 09:08 70 102/56 12/21/17 08:13 95 Simple Mask 6.00 12/21/17 08:00 97.5 22 12/20/17 01:30 100 Intake and Output 12/21/17 12/21/17 12/22/17 08:00 16:00 00:00 Intake Total 450 ml Output Total 800 ml Balance -350 ml Result Diagram: 12/21/17 0455 12/21/17 0455 Other Results Microbiology Date/Time Source Procedure Growth Status 12/20/17 10:44 Nasal Aspirate Influenza Types A,B Antigen (MARGO) - Final NEGATIVE FOR FLU A AND B ANTIGEN.... Complete 12/20/17 05:45 Urine Random Urine Legionella Antigen - Final PRESUMPTIVE NEGATIVE FOR LEGIONELLA P... Complete 12/20/17 05:45 Urine Random Urine Streptococcus pneumoniae Antigen (M - Final PRESUMPTIVE NEGATIVE FOR STREPTOCOCCU... Complete Laboratory Tests Test 12/20/17 13:08 Blood Gas Puncture Site RT RADIAL Blood Gas Patient Temperature 98.6 Blood Gas HCO3 20 mmol/L (22-26) Blood Gas Base Excess -4.0 mmol/L (-2-2) Blood Gas Oxygen Saturation 94 % (90-100) Arterial Blood pH 7.37 (7.380-7.420) Arterial Blood Partial Pressure CO2 36 mmHg (38-42) Arterial Blood Partial Pressure O2 81 mmHg (61-120) Arterial Blood Oxygen Content 16.6 Vol % (12.0-20.0) Arterial Blood Carboxyhemoglobin 1.7 % (0-4) Arterial Blood Methemoglobin 0.9 % (0-2) Blood Gas Hemoglobin 12.6 G/DL (12.0-16.0) Oxygen Delivery Device MASK Blood Gas Liter Flow 6 L/M Objective Remarks GENERAL: 77-year-old male currently on a simple mask and some mild respiratory distress SKIN: Warm and dry. HEAD: Atraumatic. Normocephalic. EYES: Pupils equal and round about 3 mm bilaterally and reactive. No scleral icterus. No injection or drainage. ENT: No nasal bleeding or discharge. Mucous membranes pink and moist. NECK: Trachea midline. No JVD. CARDIOVASCULAR: Tachycardic, IR. S1, S2. Positive S3. No S4. Without murmur RESPIRATORY: Coarse rhonchorous breath sounds appreciated bilaterally anteriorly posteriorly. Diminished breath sounds right lower lobe. Posteriorly /laterally on right side placed pigtail catheter/#10 Malagasy GASTROINTESTINAL: Abdomen soft, non-tender, nondistended. Hypoactive bowel sounds appreciated MUSCULOSKELETAL: Extremities with trace bilateral upper and lower extremity edema. No obvious deformities. NEUROLOGICAL: Awake and alert. No obvious cranial nerve deficits. Motor grossly within normal limits. Five out of 5 muscle strength in the arms and legs. Normal speech. Hard of hearing A/P Assessment and Plan Neuro/Psych: Acetaminophen 650 mg p.o. every 6 hours as needed fever Hydrocodone/acetaminophen 5/325 1 tab acute 4 hours. Pain 1 through 5 Morphine sulfate 2 mg IV every 2 hours as needed pain 6-10 Previously on oxycodone/acetaminophen 10/325 1 tablet every 12 hours as needed pain CV: Paroxysmal atrial fibrillation with a [id number] VASc score of 3 Essential hypertension Dyslipidemia Continue dronedarone 400 mg p.o. twice daily/home medication Holding spironolactone 50 mg p.o. daily hydrochlorothiazide 50 mg p.o. daily Holding lisinopril 40 mg p.o. daily Holding amlodipine 5 mg p.o. daily/home medication Continue labetalol 200 mg p.o. twice daily but decrease to 100 mg twice daily with bleeding EKG/2D echocardiogram and troponin all pending Resp: Acute respiratory insufficiency Large right hemothorax CT thorax currently ordered. Results are pending Chest tube to -40 cm H2O. Noted placed at [facility] by IR 12/19 after holding apixaban 1 day Status post #10 Malagasy pigtail catheter placed by interventional radiology at [facility]. 4 L questionable output since placement GI: Gastroesophageal reflux disease History of duodenal gastrointestinal stromal tumor PO diet as tolerated Pantoprazole for GI prophylaxis. On omeprazole 20 mg p.o. daily at home Docusate sodium/senna 1 tablet twice daily for bowel regimen : Goyal catheter if indicated for accurate I's and O's in a critically ill patient Endo: History of gout At home on allopurinol 300 mg p.o. daily. Adjust 100 mg daily Sliding scale insulin if indicated to maintain euglycemia Renal: Chronic kidney disease stage IIIa History of nephrolithiasis Creatinine 1.89 at [facility]. All results are currently pending Monitor urine output Accurate I's and O's Heme: Follicular lymphoma grade IIIa Chronic apixaban use Acute blood loss anemia Thrombocytopenia Leukocytosis History of duodenal gastrointestinal stromal tumor status post resection Patient has been typed and crossed CBC/coags currently pending Patient received K Centra unknown dosage per oral report at [facility]. Ibrutinib 140 mg daily currently on hold. Holding target specific oral anticoagulant in light of right hemothorax medical oncology following. ID: Monitor for signs and sequelae of infection FEN: Hyponatremia Replace electrolytes as clinically indicated MSK: Osteoarthritis Degenerative joint disease Holding cholecalciferol 1000 units p.o. daily/home medication PT evaluate and treat Access -Utilize peripheral IV in her left vena port with Rivas needle Prophylaxis -GI -pantoprazole -DVT -SCD/holding pharmacological prophylaxis in light of right hemothorax D/W Dr. Fitz Dubon, not planning any surgical intervention at this time. Critical Care: The total critical care time was 35 minutes. Time to perform other separately billable procedures was not included in the critical care time. Roosevelt Saravia MD December 21, 2017 12:37
[2017-12-21] MEDS: ENOXAPARIN SODIUM 40 MG/0.4 ML SYRINGE SQ SCH (13:00)
[2017-12-21 13:12] LABS: HEMOGLOBIN A1C 4.8 % (4.3-6.0)
[2017-12-21] MEDS: SODIUM CHLOR 0.9% 1000 ML INJ 1,000 ML IV SCH (14:02)
[2017-12-22] VITALS (13 sets, daily range): BP systolic 96–110; BP diastolic 53–62; PULSE 55–74; RESP 18–24; TEMP 97.5–98.2; O2SAT 90–98
[2017-12-22] MEDS: AZITHROMYCIN INJ 500 MG in SODIUM CHLOR 0.9% 250 ML INJ 250 ML IV SCH (02:17)
[2017-12-22] MEDS: PIPERACIL-TAZO 3.375 GM PREMIX 50 ML IV SCH ×4 (02:17→20:49)
[2017-12-22] MEDS: CHLORHEXIDINE GLUCONATE 2 % 1 PACK (2 CLOTHS) TOP SCH (04:51)
[2017-12-22] MEDS: SODIUM CHLORIDE 0.9% FLUSH 10 ML FLUSH IV FLUSH SCH ×2 (08:09→20:50)
[2017-12-22] MEDS: ALLOPURINOL 100 MG TAB PO SCH (08:09)
[2017-12-22] MEDS: PANTOPRAZOLE SODIUM 40 MG VIAL IV PUSH SCH (08:09)
[2017-12-22] MEDS: methylPREDNISolone SOD SUCC 125 MG/2 ML VIAL IV PUSH SCH ×2 (08:09→20:50)
[2017-12-22] MEDS: VASOPRESSIN INJ 40 UNITS in DEXTROSE 5% IN WATER 100ML INJ 98 ML IV SCH ×2 (08:51)
--- NOTE | 2017-12-22 08:52 | HHI.CCPN ---
Subjective Remarks/Hospital Course 12/20: This is a 77-year-old male. Full code. Date of admission 12/20. 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 Patient received chemotherapy was noted to have a CD 38 expression by flow cytometry indicative of an unfavorable prognostic Jarvis per report. 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 Chet Chávez, paroxysmal atrial fibrillation with a [id number] of 3, Yesterday, patient presented to [facility] with shortness of breath. On chest x-ray patient was noted to have a large right pleural effusion. His apixaban was held and today patient had a right-sided chest tube placed. My 60 cm's was sent. For cultures. Studies are still pending. Patient has had 4 L of blood since placement. Patient received [facility] that facility was transferred here for possible cardiothoracic intervention. Patient is currently on 6 L simple mask at the protecting his airway. 12/21: Resting in bed currently on facemask. Right-sided chest tube in place. Still slightly short of breath. States that his breathing is slightly better. 0507: Breathing comfortably. CXR with pleural fluid well drained. Parenchymal process is worrisome. I appreciated input from Dr. Singh immensely. Agree with Dr. Dubon, ideally we avoid more interventions. Cultures negative so far. Objective Vital Signs Date Time Temp Pulse Resp B/P (MAP) Pulse Ox O2 Delivery O2 Flow Rate FiO2 12/22/17 07:00 94 Nasal Cannula 6.00 Humidified 12/22/17 06:00 55 12/22/17 04:00 98.0 24 104/59 (74) 12/20/17 01:30 100 Intake and Output 12/22/17 12/22/17 12/23/17 08:00 16:00 00:00 Intake Total 720 ml Output Total 875 ml Balance -155 ml Result Diagram: 12/21/17 0455 12/21/17 0455 Other Results Microbiology Date/Time Source Procedure Growth Status 12/20/17 10:44 Nasal Aspirate Influenza Types A,B Antigen (MARGO) - Final NEGATIVE FOR FLU A AND B ANTIGEN.... Complete 12/20/17 05:45 Urine Random Urine Legionella Antigen - Final PRESUMPTIVE NEGATIVE FOR LEGIONELLA P... Complete 12/20/17 05:45 Urine Random Urine Streptococcus pneumoniae Antigen (M - Final PRESUMPTIVE NEGATIVE FOR STREPTOCOCCU... Complete Objective Remarks GENERAL: 77-year-old male currently on a simple mask. SKIN: Warm and dry. HEAD: Atraumatic. Normocephalic. EYES: Pupils equal and round about 2 mm bilaterally and reactive. No scleral icterus. No injection or drainage. ENT: No nasal bleeding or discharge. Mucous membranes pink and moist. NECK: Trachea midline. Airway widely patent. CARDIOVASCULAR: Tachycardic, IR. S1, S2. Positive S3. No S4. Without murmur RESPIRATORY: Scattered rhonchi right, good breath sounds appreciated bilaterally anteriorly posteriorly. Diminished breath sounds right lower lobe. Posteriorly/laterally on right side placed pigtail catheter/#10 Liberian, serous drainage. GASTROINTESTINAL: Abdomen soft, non-tender, nondistended. Bowel sounds appreciated. No guarding. MUSCULOSKELETAL: Extremities with trace bilateral upper and lower extremity edema. No obvious deformities. Chronic stasis changes both lower legs with brawny induration. NEUROLOGICAL: Awake and alert. No obvious cranial nerve deficits. Motor grossly within normal limits. Five out of 5 muscle strength in the arms and legs. Normal speech. Hard of hearing A/P Assessment and Plan Neuro/Psych: Acetaminophen 650 mg p.o. every 6 hours as needed fever Hydrocodone/acetaminophen 5/325 1 tab acute 4 hours. Pain 1 through 5 Morphine sulfate 2 mg IV every 2 hours as needed pain 6-10 Previously on oxycodone/acetaminophen 10/325 1 tablet every 12 hours as needed pain CV: Paroxysmal atrial fibrillation with a [id number] VASc score of 3 Essential hypertension Dyslipidemia Stop dronedarone 400 mg p.o. twice daily/home medication Holding spironolactone 50 mg p.o. daily hydrochlorothiazide 50 mg p.o. daily Holding lisinopril 40 mg p.o. daily Holding amlodipine 5 mg p.o. daily/home medication Continue labetalol 200 mg p.o. twice daily but decrease to 100 mg twice daily with bleeding EKG/2D echocardiogram and troponin all pending Resp: Acute respiratory insufficiency Large right hemothorax CT thorax currently ordered. Results are pending Chest tube to -40 cm H2O. Noted placed at [facility] by IR 12/19 after holding apixaban 1 day Status post #10 Liberian pigtail catheter placed by interventional radiology at [facility]. 4 L questionable output immediately blood. GI: Gastroesophageal reflux disease History of duodenal gastrointestinal stromal tumor PO diet as tolerated Pantoprazole for GI prophylaxis. On omeprazole 20 mg p.o. daily at home Docusate sodium/senna 1 tablet twice daily for bowel regimen : Goyal catheter if indicated for accurate I's and O's in a critically ill patient Endo: History of gout At home on allopurinol 300 mg p.o. daily. Adjust 100 mg daily Sliding scale insulin if indicated to maintain euglycemia Renal: Chronic kidney disease stage IIIa History of nephrolithiasis Creatinine 1.89 at [facility]. All results are currently pending Monitor urine output Accurate I's and O's Heme: Follicular lymphoma grade IIIa Chronic apixaban use Acute blood loss anemia Thrombocytopenia Leukocytosis History of duodenal gastrointestinal stromal tumor status post resection Patient has been typed and crossed CBC/coags currently pending Patient received [facility] unknown dosage per oral report at [facility]. Ibrutinib 140 mg daily currently on hold. Holding target specific oral anticoagulant in light of right hemothorax medical oncology following. ID: Monitor for signs and sequelae of infection FEN: Hyponatremia Replace electrolytes as clinically indicated MSK: Osteoarthritis Degenerative joint disease Holding cholecalciferol 1000 units p.o. daily/home medication PT evaluate and treat Access -Utilize peripheral IV in her left vena port with Rivas needle Prophylaxis -GI -pantoprazole -DVT -SCD/holding pharmacological prophylaxis in light of right hemothorax D/W Dr. Fitz Dubon, not planning any surgical intervention at this time. Overall impression: Ongoing workup for lung infiltrates. Kannan Malik MD December 22, 2017 08:52
[2017-12-22] MEDS: DOCUSATE SODIUM 50 MG/SENNA 8.6 MG TAB PO SCH ×2 (09:00→20:50)
[2017-12-22] MEDS: LABETALOL HCL 100 MG TAB PO SCH ×2 (09:00→20:50)
--- NOTE | 2017-12-22 12:29 | PD.ONC.PN ---
Subjective Subjective Remarks Afebrile overnight. Patient states he is feeling a bit better today in terms of breathing. still feeling very fatigued. Objective Data Date Time Temp Pulse Resp B/P (MAP) Pulse Ox O2 Delivery O2 Flow Rate FiO2 12/22/17 12:00 71 12/22/17 12:00 98.1 56 18 110/60 (77) 98 12/22/17 10:00 69 12/22/17 09:26 93 Nasal Cannula 5.00 12/22/17 08:51 51 103/55 12/22/17 08:00 98.0 66 18 105/53 (70) 90 12/22/17 08:00 60 12/22/17 07:00 94 Nasal Cannula 6.00 Humidified 12/22/17 06:00 55 12/22/17 04:00 98.0 59 24 104/59 (74) 97 12/22/17 04:00 55 12/22/17 02:00 56 12/22/17 00:00 60 12/22/17 00:00 97.5 74 20 109/62 (78) 96 12/21/17 23:03 95 Simple Mask 5.00 12/21/17 22:30 60 112/57 12/21/17 22:00 59 12/21/17 20:00 70 12/21/17 20:00 97.9 74 22 98/61 (73) 95 12/21/17 19:00 96 Nasal Cannula 6.00 Humidified 12/21/17 18:00 56 12/21/17 16:00 62 12/21/17 16:00 97.4 62 25 91/50 (64) 94 12/21/17 14:02 67 95/59 12/21/17 14:02 65 85/51 12/21/17 14:00 60 12/21/17 13:55 59 95/59 12/22/17 12/22/17 12/22/17 07:00 15:00 23:00 Intake Total 720 ml Output Total 875 ml Balance -155 ml Result Diagram: 12/21/17 0455 12/21/17 0455 Laboratory Results Laboratory Tests Test 12/22/17 05:45 Random Vancomycin Level 18.9 COMMENT Culture Results Microbiology Date/Time Source Procedure Growth Status 12/20/17 03:48 Blood Peripheral Aerobic Blood Culture - Preliminary NO GROWTH IN 2 DAYS Resulted 12/20/17 03:48 Blood Peripheral Anaerobic Blood Culture - Preliminary NO GROWTH IN 2 DAYS Resulted 12/20/17 03:42 Blood Peripheral Aerobic Blood Culture - Preliminary NO GROWTH IN 2 DAYS Resulted 12/20/17 03:42 Blood Peripheral Anaerobic Blood Culture - Preliminary NO GROWTH IN 2 DAYS Resulted 12/20/17 10:30 Fluid Pleural Fluid Fungal Smear - Final NO FUNGAL ELEMENTS SEEN. Resulted 12/20/17 10:30 Fluid Pleural Fluid Fungal Culture Pending Resulted 12/20/17 10:30 Fluid Pleural Fluid Acid Fast Stain Pending Received 12/20/17 10:30 Fluid Pleural Fluid Mycobacterial Culture Pending Received 12/20/17 10:30 Fluid Pleural Fluid Gram Stain - Final Resulted 12/20/17 10:30 Fluid Pleural Fluid Body Fluid Culture - Preliminary NO GROWTH IN 24 HOURS. Resulted 12/20/17 10:44 Nasal Aspirate Influenza Types A,B Antigen (MARGO) - Final NEGATIVE FOR FLU A AND B ANTIGEN.... Complete 12/20/17 05:45 Urine Random Urine Legionella Antigen - Final PRESUMPTIVE NEGATIVE FOR LEGIONELLA P... Complete 12/20/17 05:45 Urine Random Urine Streptococcus pneumoniae Antigen (M - Final PRESUMPTIVE NEGATIVE FOR STREPTOCOCCU... Complete Administered Medications Medications (Trade) Dose Ordered Sig/Helio Route PRN Reason Start Time Stop Time Status Last Admin Dose Admin Sodium Chloride 1,000 ml @ 84 mls/hr [id number] IV 12/20/17 01:50 12/21/17 14:02 Sodium Chloride (NS Flush) 2 ml BID IV FLUSH 12/20/17 09:00 12/22/17 08:09 Pantoprazole Sodium (Protonix Inj) 40 mg DAILY IV PUSH 12/20/17 09:00 12/22/17 08:09 Miscellaneous Information ([facility]) 1 [id number] XX 12/20/17 02:00 12/20/17 02:00 Chlorhexidine Gluconate (Chlorhexidine 2% Cloth) 3 pack Taper DAILY@04 TOP 12/20/17 04:00 12/16/18 03:59 12/22/17 04:51 Senna/Docusate Sodium (Aubree-Colace) 1 tab BID PO 12/20/17 09:00 12/20/17 20:22 Allopurinol (Zyloprim) 100 mg DAILY PO 12/20/17 09:00 12/22/17 08:09 Norepinephrine Bitartrate 4 mg/ Sodium Chloride 250 ml @ 7.5 mls/hr TITRATE PRN IV Maintain MAP > 65 mmHg 12/20/17 06:30 12/21/17 22:30 Piperacillin Sod/ Tazobactam Sod 50 ml @ 100 mls/hr Q6H IV 12/20/17 08:00 12/22/17 08:09 Azithromycin 500 mg/Sodium Chloride 250 ml @ 250 mls/hr Q24H IV 12/21/17 03:00 12/22/17 02:17 Vasopressin 40 units/Dextrose 100 ml @ 6 mls/hr [id number] IV 12/20/17 09:00 12/22/17 08:51 Methylprednisolone Sodium Succinate (SoluMEDROL INJ) 60 mg Q12HR IV PUSH 12/20/17 10:15 12/22/17 08:09 Enoxaparin Sodium (Lovenox Inj) 40 mg Q24H SQ 12/21/17 13:00 12/21/17 13:00 Objective Remarks GENERAL: pleasant elderly male, supine in bed. on 5L O2 via NC SKIN: Warm and dry. HEAD: Normocephalic. EYES: No injection or drainage. NECK: Supple, trachea midline. CARDIOVASCULAR: Regular rate and rhythm RESPIRATORY: crackles heard, left posterior lung remy. occasional rhonchi. on 5L O2 via NC GASTROINTESTINAL: Abdomen soft, non-tender, nondistended. EXTREMITIES: No cyanosis NEUROLOGICAL: awake and alert. normal speech. hard of hearing. Assessment/Plan Assessment 77-year-old male with history of CLL admitted with dyspnea Plan 1. continue solu-medrol. patient clinically is unchanged although subjectively he feels he is breathing slightly better. 2. monitor blood counts. 3. continue Lovenox for DVT prophylaxis. Shanna Rabago December 22, 2017 12:29 Awais Singh MD December 23, 2017 08:18
[2017-12-22] MEDS: ENOXAPARIN SODIUM 40 MG/0.4 ML SYRINGE SQ SCH (12:39)
[2017-12-22] MEDS: SODIUM CHLOR 0.9% 1000 ML INJ 1,000 ML IV SCH (16:02)
[2017-12-22] MEDS ORDERED: VANCOMYCIN INJ 2,000 MG in SODIUM CHLORID 0.9% 500 ML INJ 500 ML IV ONE (17:00)
[2017-12-23] VITALS (15 sets, daily range): BP systolic 93–107; BP diastolic 53–67; PULSE 60–78; RESP 20–26; TEMP 97.7–98.2; O2SAT 93–98
[2017-12-23] MEDS: PIPERACIL-TAZO 3.375 GM PREMIX 50 ML IV SCH ×4 (02:04→19:31)
[2017-12-23] MEDS: AZITHROMYCIN INJ 500 MG in SODIUM CHLOR 0.9% 250 ML INJ 250 ML IV SCH (02:05)
[2017-12-23] MEDS: VASOPRESSIN INJ 40 UNITS in DEXTROSE 5% IN WATER 100ML INJ 98 ML IV SCH ×4 (03:40→20:20)
[2017-12-23] MEDS: CHLORHEXIDINE GLUCONATE 2 % 1 PACK (2 CLOTHS) TOP SCH (04:00)
--- NOTE | 2017-12-23 05:53 | RADRPT ---
EXAM DATE/TIME: 12/23/2017 05:00 [place] COMPARISON: CHEST SINGLE AP, December 21, 2017, 3:28. INDICATIONS : Short of breath. MEDICAL HISTORY : None. SURGICAL HISTORY : None. ENCOUNTER: Subsequent ACUITY: 3 days PAIN SCORE: Non-responsive. LOCATION: Bilateral chest FINDINGS: A single view of the chest demonstrates patchy bilateral infiltrates right greater left. There is lef t subclavian central line in good position. Right-sided pigtail catheter in good position. No visible pneumothorax.. The cardiomediastinal contours are unremarkable. Osseous structures are intact. CONCLUSION: Patchy airspace disease right greater left. Pigtail catheter in good position. Berto Recinos MD on December 23, 2017 at 5:51 Board Certified Radiologist. This report was verified electronically.
[2017-12-23 06:52] LABS: BICARBONATE 22.2 MEQ/L (21.0-32.0); CALCIUM 7.9 MG/DL (8.5-10.1); CREATININE 1.4 MG/DL (0.60-1.30)
[2017-12-23 06:57] LABS: AUTOMATED NEUTROPHIL # 5.6 TH/MM3 (1.8-7.7); BASOPHIL % 0.2 % (0.0-2.0); HEMATOCRIT 30.9 % (39.0-51.0); HEMOGLOBIN 10.4 GM/DL (13.0-17.0); LYMPH % 35.5 % (9.0-44.0); LYMPHOCYTE # 3.4 TH/MM3 (1.0-4.8); MEAN CELL VOLUME 94.1 FL (80.0-100.0); MEAN CORPUSCULAR HEMOGLOBIN 31.7 PG (27.0-34.0); MEAN CORPUSCULAR HGB CONC 33.7 % (32.0-36.0); MEAN PLATELET VOLUME 7.5 FL (7.0-11.0); MONOCYTE # 0.5 TH/MM3 (0-0.9); NEUT % 59.3 % (16.0-70.0); PLATELET COUNT 106 TH/MM3 (150-450); RED BLOOD COUNT 3.28 MIL/MM3 (4.50-5.90); RED CELL DISTRIBUTION WIDTH 17.1 % (11.6-17.2); WHITE BLOOD COUNT 9.5 TH/MM3 (4.0-11.0)
[2017-12-23] MEDS: LABETALOL HCL 100 MG TAB PO SCH ×2 (08:33→20:47)
[2017-12-23] MEDS: DOCUSATE SODIUM 50 MG/SENNA 8.6 MG TAB PO SCH ×2 (08:33→20:47)
[2017-12-23] MEDS: ALLOPURINOL 100 MG TAB PO SCH (08:33)
[2017-12-23] MEDS: PANTOPRAZOLE SODIUM 40 MG VIAL IV PUSH SCH (08:34)
[2017-12-23] MEDS: SODIUM CHLORIDE 0.9% FLUSH 10 ML FLUSH IV FLUSH SCH ×2 (08:34→20:46)
[2017-12-23] MEDS: methylPREDNISolone SOD SUCC 125 MG/2 ML VIAL IV PUSH SCH ×2 (08:34→20:46)
[2017-12-23 10:57] LABS: AMYLASE BODY FLUID 51 U/L; AMYLASE BODY FLUID TYPE PLEURAL
[2017-12-23] MEDS: SODIUM CHLOR 0.9% 1000 ML INJ 1,000 ML IV SCH (13:15)
[2017-12-23 13:19] LABS: INTERNATIONAL NORMALIZED RATIO 1.1 RATIO; PROTHROMBIN TIME - PATIENT 11.6 SEC (9.8-11.6)
[2017-12-23 13:26] LABS: ALBUMIN 2.1 GM/DL (3.4-5.0); DIRECT BILIRUBIN ADULT 0.4 MG/DL (0.0-0.2)
[2017-12-23 13:28] LABS: INDIRECT BILIRUBIN 0.4 MG/DL (0.0-0.8); TOTAL BILIRUBIN ADULT 0.8 MG/DL (0.2-1.0); TOTAL PROTEIN 4.3 GM/DL (6.4-8.2)
[2017-12-23] MEDS: ENOXAPARIN SODIUM 40 MG/0.4 ML SYRINGE SQ SCH (14:31)
--- NOTE | 2017-12-23 14:52 | HHI.PR ---
Subjective Remarks Patient resting in bed, denied chest pain or short of breath, he is on O2 4 L, chest tube in place Objective Vitals Vital Signs Date Time Temp Pulse Resp B/P (MAP) Pulse Ox O2 Delivery O2 Flow Rate FiO2 12/23/17 12:00 73 12/23/17 12:00 97.8 69 26 101/57 (72) 94 12/23/17 11:24 98 Nasal Cannula 4.00 12/23/17 10:00 78 12/23/17 08:12 93 Nasal Cannula 5.00 12/23/17 08:00 97.7 70 20 93/53 (66) 97 12/23/17 08:00 78 12/23/17 08:00 96 Nasal Cannula 6.00 Humidified 12/23/17 06:00 66 12/23/17 06:00 72 94/51 12/23/17 04:00 98.2 63 22 105/59 (74) 96 12/23/17 02:00 62 12/23/17 00:24 97 Nasal Cannula 6.00 12/23/17 00:00 62 12/23/17 00:00 98.0 62 20 104/55 (71) 96 12/23/17 00:00 62 104/55 12/22/17 22:00 65 12/22/17 20:00 70 12/22/17 20:00 98.2 72 22 101/58 (72) 96 12/22/17 19:00 96 Nasal Cannula 6.00 Humidified 12/22/17 18:00 68 12/22/17 16:00 67 12/22/17 16:00 98.0 69 18 96/56 (69) 93 I/O 12/22/17 12/22/17 12/22/17 12/23/17 12/23/17 12/23/17 07:00 15:00 23:00 07:00 15:00 23:00 Intake Total 720 ml 50 ml 780 ml 910 ml 50 ml Output Total 875 ml 1150 ml 1200 ml Balance -155 ml 50 ml -370 ml -290 ml 50 ml Intake Oral 420 ml 680 ml 560 ml IV Total 300 ml 50 ml 100 ml 350 ml 50 ml Output Urine Total 450 ml 600 ml 1000 ml Chest Tube Drainage Total 425 ml 550 ml 200 ml # Bowel Movements 1 0 Result Diagram: 12/23/1752912/23/1730 Objective Remarks GENERAL: This is a well-nourished, well-developed patient, in no apparent distress. On 4 L nasal cannula CARDIOVASCULAR: RRR, no gallops, or rubs. RESPIRATORY: Diminished breath sounds on the right, chest tube in place GASTROINTESTINAL: Abdomen soft, non-tender, nondistended. Positive bowel sounds , MUSCULOSKELETAL: Extremities without clubbing, cyanosis, or edema. Pedal pulses appreciated NEUROLOGICAL: Awake and alert. Moves all extremity. Normal speech.no focal neurological deficit A/P Problem List: (1) Hemothorax, right ICD Code: J94.2 - Hemothorax (2) Paroxysmal atrial fibrillation ICD Code: I48.0 - Paroxysmal atrial fibrillation (3) Acute blood loss anemia ICD Code: D62 - Acute posthemorrhagic anemia (4) Gastroesophageal reflux disease ICD Code: K21.9 - Gastro-esophageal reflux disease without esophagitis (5) Hypertension ICD Code: I10 - Essential (primary) hypertension (6) Osteoarthritis ICD Code: M19.90 - Unspecified osteoarthritis, unspecified site (7) Gastrointestinal stromal tumor (GIST) of duodenum ICD Code: C49.A3 - Gastrointestinal stromal tumor of small intestine (8) Non Hodgkin's lymphoma ICD Code: C85.90 - Non-Hodgkin lymphoma, unspecified, unspecified site (9) Hyponatremia ICD Code: E87.1 - Hypo-osmolality and hyponatremia (10) Leukocytosis ICD Code: D72.829 - Elevated white blood cell count, unspecified (11) Essential hypertension ICD Code: I10 - Essential (primary) hypertension (12) Chronic kidney disease, stage 3a ICD Code: N18.3 - Chronic kidney disease, stage 3 (moderate) (13) Gout ICD Code: M10.9 - Gout, unspecified Assessment and Plan 12/20: This is a 77-year-old male. Full code. Date of admission 12/20. 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 Patient received chemotherapy was noted to have a CD 38 expression by flow cytometry indicative of an unfavorable prognostic Jarvis per report. 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 On chest x-ray patient was noted to have a large right pleural effusion. His apixaban was held and today patient had a right-sided chest tube placed. My 60 cm's was sent. For cultures. Studies are still pending. Patient has had 4 L of blood since placement. Patient received [facility] that facility was transferred here for possible cardiothoracic intervention. Patient is currently on 6 L simple mask at the protecting his airway. 12/21: Resting in bed currently on facemask. Right-sided chest tube in place. Still slightly short of breath. States that his breathing is slightly better. 12/22: Breathing comfortably. CXR with pleural fluid well drained. Parenchymal process is worrisome. I appreciated input from Dr. Singh immensely. Agree with Dr. Dubon, ideally we avoid more interventions. Cultures negative so far. 12/23: Stable on 4 L nasal cannula, appreciate [facility] recommendation no surgical intervention at this point but monitoring, chest tube in place, monitor clinically AV Neuro/Psych: Acetaminophen 650 mg p.o. every 6 hours as needed fever Hydrocodone/acetaminophen 5/325 1 tab acute 4 hours. Pain 1 through 5 Morphine sulfate 2 mg IV every 2 hours as needed pain 6-10 Previously on oxycodone/acetaminophen 10/325 1 tablet every 12 hours as needed pain CV: Paroxysmal atrial fibrillation with a [id number] VASc score of 3 Essential hypertension Dyslipidemia Stop dronedarone 400 mg p.o. twice daily/home medication Holding spironolactone 50 mg p.o. daily hydrochlorothiazide 50 mg p.o. daily Holding lisinopril 40 mg p.o. daily Holding amlodipine 5 mg p.o. daily/home medication Continue labetalol 200 mg p.o. twice daily but decrease to 100 mg twice daily with bleeding EKG/2D echocardiogram and troponin all pending Resp: Acute respiratory insufficiency Large right hemothorax CT thorax currently ordered. Results are pending Chest tube to -40 cm H2O. Noted placed at [facility] by IR 12/19 after holding apixaban 1 day Status post #10 Bahraini pigtail catheter placed by interventional radiology at [facility]. 4 L questionable output immediately blood. GI: Gastroesophageal reflux disease History of duodenal gastrointestinal stromal tumor PO diet as tolerated Pantoprazole for GI prophylaxis. On omeprazole 20 mg p.o. daily at home Docusate sodium/senna 1 tablet twice daily for bowel regimen : Goyal catheter if indicated for accurate I's and O's in a critically ill patient Endo: History of gout At home on allopurinol 300 mg p.o. daily. Adjust 100 mg daily Sliding scale insulin if indicated to maintain euglycemia Renal: Chronic kidney disease stage IIIa History of nephrolithiasis Creatinine 1.89 at [facility]. All results are currently pending Monitor urine output Accurate I's and O's Heme: Follicular lymphoma grade IIIa Chronic apixaban use Acute blood loss anemia Thrombocytopenia Leukocytosis History of duodenal gastrointestinal stromal tumor status post resection Patient has been typed and crossed CBC/coags currently pending Patient received [facility] unknown dosage per oral report at [facility]. Ibrutinib 140 mg daily currently on hold. Holding target specific oral anticoagulant in light of right hemothorax medical oncology following. ID: Monitor for signs and sequelae of infection FEN: Hyponatremia Replace electrolytes as clinically indicated MSK: Osteoarthritis Degenerative joint disease Holding cholecalciferol 1000 units p.o. daily/home medication PT evaluate and treat Access -Utilize peripheral IV in her left vena port with Rivas needle Prophylaxis -GI -pantoprazole -DVT -SCD/holding pharmacological prophylaxis in light of right hemothorax Problem Qualifiers (1) Gastroesophageal reflux disease: Qualified Codes: K21.9 - Gastro-esophageal reflux disease without esophagitis (2) Hypertension: Qualified Codes: I10 - Essential (primary) hypertension (3) Osteoarthritis: Qualified Codes: M19.90 - Unspecified osteoarthritis, unspecified site (4) Non Hodgkin's lymphoma: Qualified Codes: C85.90 - Non-Hodgkin lymphoma, unspecified, unspecified site (5) Leukocytosis: Qualified Codes: D72.829 - Elevated white blood cell count, unspecified (6) Gout: Qualified Codes: M10.9 - Gout, unspecified Chai Fritz MD December 23, 2017 14:52
--- NOTE | 2017-12-23 21:06 | ECHRPT ---
Indication: ATRIAL FIB/FLUTTER CONCLUSIONS The left ventricular systolic function is normal with an estimated ejection fraction in the range of 55-60%. Mild concentric left ventricular hypertrophy. There is trace tricuspid valve regurgitation. BP: 104 / 59 HR: 55 Rhythm: Sinus MEASUREMENTS (Male / Female) Normal Values Technical Quality:Fair 2D ECHO LV Diastolic Diameter PLAX 3.6 cm 4.2 - 5.9 / 3.9 - 5.3 cm LV Systolic Diameter PLAX 2.3 cm IVS Diastolic Thickness 1.2 cm 0.6 - 1.0 / 0.6 - 0.9 cm LVPW Diastolic Thickness 1.2 cm 0.6 - 1.0 / 0.6 - 0.9 cm LV Relative Wall Thickness 0.7 RV Internal Dim ED PLAX 3.1 cm LVOT Diameter 2.1 cm Aortic Root Diameter 2.6 cm LA Systolic Diameter LX 3.5 cm 3.0 - 4.0 / 2.7 - 3.8 cm DOPPLER AV Peak Velocity 139.0 cm/s AV Peak Gradient 7.7 mmHg AV Mean Gradient 3.5 mmHg AV Velocity Time Integral 24.3 cm LVOT Peak Velocity 100.0 cm/s LVOT Peak Gradient 4.0 mmHg LVOT Velocity Time Integral 19.0 cm AV Area Cont Eq vti 2.7 cm AV Area Cont Eq pk 2.5 cm Mitral E Point Velocity 97.0 cm/s LV E' Lateral Velocity 19.8 cm/s Mitral E to LV E' Lateral Ratio 4.9 LV E' Septal Velocity 12.2 cm/s Mitral E to LV E' Septal Ratio 8.0 TR Peak Velocity 213.0 cm/s TR Peak Gradient 18.1 mmHg Right Atrial Pressure 10.0 mmHg Pulmonary Artery Systolic Pressu 28.1 mmHg Right Ventricular Systolic Press 28.1 mmHg PV Peak Velocity 61.7 cm/s PV Peak Gradient 1.5 mmHg FINDINGS LEFT VENTRICLE Normal left ventricular size. Mild concentric left ventricular hypertrophy. The left ventricular systolic function is normal with an estimated ejection fraction in the range of 55-60%. RIGHT VENTRICLE Grossly normal LEFT ATRIUM The left atrial size is moderately dilated. RIGHT ATRIUM The right atrial size is [id number] dilated. ATRIAL SEPTUM Normal atrial septal thickness. AORTA The aortic root and proximal ascending aorta are normal in size on limited imaging. MITRAL VALVE Structurally normal mitral valve. No mitral valve stenosis or regurgitation. AORTIC VALVE Aortic valve sclerosis is present. No aortic valve regurgitation. No aortic valve stenosis. TRICUSPID VALVE Grossly normal There is trace tricuspid valve regurgitation. The estimated pulmonary arterial pressure is 28.1 mmHg. PULMONARY VALVE No pulmonary valve regurgitation or stenosis. VESSELS The inferior vena cava is normal in size. PERICARDIUM No pericardial effusion. Azael Kelly DO (Electronically Signed) Final Date:23 Dec 2017 21:04
[2017-12-24] VITALS (11 sets, daily range): BP systolic 95–112; BP diastolic 51–61; PULSE 66–104; RESP 18–24; TEMP 96.2–98.3; O2SAT 93–97
[2017-12-24] MEDS: PIPERACIL-TAZO 3.375 GM PREMIX 50 ML IV SCH ×4 (02:37→20:41)
[2017-12-24] MEDS: SODIUM CHLOR 0.9% 1000 ML INJ 1,000 ML IV SCH ×3 (02:38→18:36)
[2017-12-24] MEDS: AZITHROMYCIN INJ 500 MG in SODIUM CHLOR 0.9% 250 ML INJ 250 ML IV SCH (02:52)
[2017-12-24] MEDS: CHLORHEXIDINE GLUCONATE 2 % 1 PACK (2 CLOTHS) TOP SCH (04:00)
[2017-12-24] MEDS: SODIUM CHLORIDE 0.9% FLUSH 10 ML FLUSH IV FLUSH SCH ×2 (08:36→20:42)
[2017-12-24] MEDS: PANTOPRAZOLE SODIUM 40 MG VIAL IV PUSH SCH (08:36)
[2017-12-24] MEDS: ALLOPURINOL 100 MG TAB PO SCH (08:36)
[2017-12-24] MEDS: methylPREDNISolone SOD SUCC 125 MG/2 ML VIAL IV PUSH SCH ×2 (08:36→20:42)
[2017-12-24] MEDS: DOCUSATE SODIUM 50 MG/SENNA 8.6 MG TAB PO SCH ×2 (08:37→20:41)
[2017-12-24] MEDS: LABETALOL HCL 100 MG TAB PO SCH ×2 (09:00→21:00)
--- NOTE | 2017-12-24 09:04 | PD.ONC.PN ---
Subjective Subjective Remarks Afebrile overnight. Patient resting in bed in nad. Breathing improved. Requiring less oxygen support. Objective Data Date Time Temp Pulse Resp B/P (MAP) Pulse Ox O2 Delivery O2 Flow Rate FiO2 12/24/17 06:00 80 12/24/17 04:00 73 12/24/17 04:00 98.0 73 22 99/59 (72) 96 12/24/17 02:00 69 12/24/17 00:00 97.9 74 22 95/54 (68) 95 12/24/17 00:00 66 12/23/17 22:00 73 12/23/17 20:00 70 12/23/17 20:00 98.0 67 22 107/67 (80) 98 12/23/17 19:00 98 Nasal Cannula 3.00 Humidified 12/23/17 18:00 62 12/23/17 16:00 97.8 60 23 104/55 (71) 97 12/23/17 16:00 60 12/23/17 14:00 69 12/23/17 12:00 73 12/23/17 12:00 97.8 69 26 101/57 (72) 94 12/23/17 11:24 98 Nasal Cannula 4.00 12/23/17 10:00 78 12/24/17 12/24/17 12/24/17 07:00 15:00 23:00 Intake Total 460 ml Output Total 800 ml Balance -340 ml Result Diagram: 12/23/17 0530 12/23/17 0530 Laboratory Results Laboratory Tests Test 12/23/17 12:35 12/24/17 05:20 Haptoglobin 181 MG/DL Prothrombin Time 11.6 SEC Prothromb Time International Ratio 1.1 RATIO Activated Partial Thromboplast Time 26.4 SEC Fibrinogen 151 mg/dL Total Bilirubin 0.8 MG/DL Direct Bilirubin 0.4 MG/DL Indirect Bilirubin 0.4 MG/DL Aspartate Amino Transf (AST/SGOT) 8 U/L Alanine Aminotransferase (ALT/SGPT) 13 U/L Alkaline Phosphatase 49 U/L Lactate Dehydrogenase 141 U/L Total Protein 4.3 GM/DL Albumin 2.1 GM/DL Random Vancomycin Level 18.6 COMMENT Administered Medications Medications (Trade) Dose Ordered Sig/Helio Route PRN Reason Start Time Stop Time Status Last Admin Dose Admin Sodium Chloride 1,000 ml @ 84 mls/hr [id number] IV 12/20/17 01:50 12/24/17 02:38 Sodium Chloride (NS Flush) 2 ml BID IV FLUSH 12/20/17 09:00 12/24/17 08:36 Pantoprazole Sodium (Protonix Inj) 40 mg DAILY IV PUSH 12/20/17 09:00 12/24/17 08:36 Miscellaneous Information ([facility] Nursing Information) 1 Q361D XX 12/20/17 02:00 12/20/17 02:00 Chlorhexidine Gluconate (Chlorhexidine 2% Cloth) 3 pack Taper DAILY@04 TOP 12/20/17 04:00 12/16/18 03:59 12/23/17 04:00 Senna/Docusate Sodium (Aubree-Colace) 1 tab BID PO 12/20/17 09:00 12/24/17 08:37 Allopurinol (Zyloprim) 100 mg DAILY PO 12/20/17 09:00 12/24/17 08:36 Labetalol HCl (Trandate) 100 mg Q12HR PO 12/20/17 09:00 12/23/17 08:33 Norepinephrine Bitartrate 4 mg/ Sodium Chloride 250 ml @ 7.5 mls/hr TITRATE PRN IV Maintain MAP > 65 mmHg 12/20/17 06:30 12/21/17 22:30 Piperacillin Sod/ Tazobactam Sod 50 ml @ 100 mls/hr Q6H IV 12/20/17 08:00 12/24/17 08:36 Azithromycin 500 mg/Sodium Chloride 250 ml @ 250 mls/hr Q24H IV 12/21/17 03:00 12/24/17 02:52 Vasopressin 40 units/Dextrose 100 ml @ 6 mls/hr [id number] IV 12/20/17 09:00 12/22/17 08:51 Methylprednisolone Sodium Succinate (SoluMEDROL INJ) 60 mg Q12HR IV PUSH 12/20/17 10:15 12/24/17 08:36 Enoxaparin Sodium (Lovenox Inj) 40 mg Q24H SQ 12/21/17 13:00 12/23/17 14:31 Objective Remarks GENERAL: Elderly male, sitting up in bed SKIN: Warm and dry. HEAD: Normocephalic. EYES: No scleral icterus. No injection or drainage. NECK: Supple, trachea midline. CARDIOVASCULAR: +S1/S2 RESPIRATORY: anterior remy clear. on 3L O2 via NC GASTROINTESTINAL: Abdomen soft, non-tender, nondistended. EXTREMITIES: No cyanosis, or edema. MUSCULOSKELETAL: Adequate muscle tone. NEUROLOGICAL: awake and alert. normal speech. Assessment/Plan Assessment 77-year-old male with history of CLL admitted with dyspnea Plan 1. chest x-ray reviewed and looks improved from prior. breathing also subjectively improved and patient requiring less oxygen. Would continue steroids and tomorrow will start to taper if patient continuing to do as well. 2. order chest x-ray for tomorrow AM. Attending Statement The exam, history, and the medical decision-making described in the above note were completed with the assistance of the mid-level provider. I reviewed and agree with the findings presented. I attest that I had a [id number] encounter with the patient on the same day, and personally performed and documented my assessment and findings in the medical record. he is clearly improved and reviewing the chest film from yesterday shows the infiltrate to be less. Still feel this is probably a non infectious pneumonitis related to medicines. Will check chest film tomorrow and if better decrease solumedral to 30 q 12 hours and in several days move to po prednisone with slow taper. Shanna Rabago December 24, 2017 09:04 Awais Singh MD December 24, 2017 09:55
[2017-12-24] MEDS ORDERED: VANCOMYCIN INJ 2,000 MG in SODIUM CHLORID 0.9% 500 ML INJ 500 ML IV SCH (12:00)
[2017-12-24] MEDS: VASOPRESSIN INJ 40 UNITS in DEXTROSE 5% IN WATER 100ML INJ 98 ML IV SCH ×2 (13:00)
[2017-12-24] MEDS: ENOXAPARIN SODIUM 40 MG/0.4 ML SYRINGE SQ SCH (13:27)
--- NOTE | 2017-12-24 18:07 | HHI.PR ---
Subjective Remarks Patient resting in bed, chest tube still in place with suctioning Patient denied chest pain or short of breath he seems to be comfortable at this point Discussed with the nurse we will GURU Goyal, transfer to floor if okay with CVS Objective Vitals Vital Signs Date Time Temp Pulse Resp B/P (MAP) Pulse Ox O2 Delivery O2 Flow Rate FiO2 12/24/17 16:00 98.3 67 18 101/61 (74) 97 12/24/17 16:00 67 12/24/17 12:00 97.8 83 21 107/59 (75) 93 12/24/17 12:00 83 12/24/17 08:00 96 Nasal Cannula 3.00 12/24/17 08:00 96.2 85 18 100/51 (67) 96 12/24/17 08:00 85 12/24/17 07:57 95 Nasal Cannula 3.00 12/24/17 06:00 80 12/24/17 04:00 73 12/24/17 04:00 98.0 73 22 99/59 (72) 96 12/24/17 02:00 69 12/24/17 00:00 97.9 74 22 95/54 (68) 95 12/24/17 00:00 66 12/23/17 22:00 73 12/23/17 20:00 70 12/23/17 20:00 98.0 67 22 107/67 (80) 98 12/23/17 19:00 98 Nasal Cannula 3.00 Humidified I/O 12/23/17 12/23/17 12/23/17 12/24/17 12/24/17 12/24/17 07:00 15:00 23:00 07:00 15:00 23:00 Intake Total 910 ml 50 ml 690 ml 460 ml 550 ml 530 ml Output Total 1200 ml 875 ml 800 ml 845 ml Balance -290 ml 50 ml -185 ml -340 ml 550 ml -315 ml Intake Oral 560 ml 640 ml 460 ml 480 ml IV Total 350 ml 50 ml 50 ml 550 ml 50 ml Output Urine Total 1000 ml 550 ml 600 ml 525 ml Chest Tube Drainage Total 200 ml 325 ml 200 ml 320 ml # Bowel Movements 0 0 0 0 Result Diagram: 12/23/1752912/23/1730 Objective Remarks GENERAL: This is a well-nourished, well-developed patient, in no apparent distress. On 4 L nasal cannula CARDIOVASCULAR: RRR, no gallops, or rubs. RESPIRATORY: Diminished breath sounds on the right, chest tube in place GASTROINTESTINAL: Abdomen soft, non-tender, nondistended. Positive bowel sounds , MUSCULOSKELETAL: Extremities without clubbing, cyanosis, or edema. Pedal pulses appreciated NEUROLOGICAL: Awake and alert. Moves all extremity. Normal speech.no focal neurological deficit A/P Problem List: (1) Hemothorax, right ICD Code: J94.2 - Hemothorax (2) Paroxysmal atrial fibrillation ICD Code: I48.0 - Paroxysmal atrial fibrillation (3) Acute blood loss anemia ICD Code: D62 - Acute posthemorrhagic anemia (4) Gastroesophageal reflux disease ICD Code: K21.9 - Gastro-esophageal reflux disease without esophagitis (5) Hypertension ICD Code: I10 - Essential (primary) hypertension (6) Osteoarthritis ICD Code: M19.90 - Unspecified osteoarthritis, unspecified site (7) Gastrointestinal stromal tumor (GIST) of duodenum ICD Code: C49.A3 - Gastrointestinal stromal tumor of small intestine (8) Non Hodgkin's lymphoma ICD Code: C85.90 - Non-Hodgkin lymphoma, unspecified, unspecified site (9) Hyponatremia ICD Code: E87.1 - Hypo-osmolality and hyponatremia (10) Leukocytosis ICD Code: D72.829 - Elevated white blood cell count, unspecified (11) Essential hypertension ICD Code: I10 - Essential (primary) hypertension (12) Chronic kidney disease, stage 3a ICD Code: N18.3 - Chronic kidney disease, stage 3 (moderate) (13) Gout ICD Code: M10.9 - Gout, unspecified Assessment and Plan 12/20: This is a 77-year-old male. Full code. Date of admission 12/20. 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 Patient received chemotherapy was noted to have a CD 38 expression by flow cytometry indicative of an unfavorable prognostic Jarvis per report. 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 Chet Chávez, paroxysmal atrial fibrillation with a [id number] of 3, Yesterday, patient presented to [facility] with shortness of breath. On chest x-ray patient was noted to have a large right pleural effusion. His apixaban was held and today patient had a right-sided chest tube placed. My 60 cm's was sent. For cultures. Studies are still pending. Patient has had 4 L of blood since placement. Patient received [facility] that facility was transferred here for possible cardiothoracic intervention. Patient is currently on 6 L simple mask at the protecting his airway. 12/21: Resting in bed currently on facemask. Right-sided chest tube in place. Still slightly short of breath. States that his breathing is slightly better. 12/22: Breathing comfortably. CXR with pleural fluid well drained. Parenchymal process is worrisome. I appreciated input from Dr. Singh immensely. Agree with Dr. Dubon, ideally we avoid more interventions. Cultures negative so far. 12/23: Stable on 4 L nasal cannula, appreciate CVS recommendation no surgical intervention at this point but monitoring, chest tube in place, monitor clinically 12/24: Continue O2 nasal cannula, chest tube suctioning, CVS following, IV antibiotic, transferred to floor once okay with CVS AV Neuro/Psych: Acetaminophen 650 mg p.o. every 6 hours as needed fever Hydrocodone/acetaminophen 5/325 1 tab acute 4 hours. Pain 1 through 5 Morphine sulfate 2 mg IV every 2 hours as needed pain 6-10 Previously on oxycodone/acetaminophen 10/325 1 tablet every 12 hours as needed pain CV: Paroxysmal atrial fibrillation with a [id number] VASc score of 3 Essential hypertension Dyslipidemia Stop dronedarone 400 mg p.o. twice daily/home medication Holding spironolactone 50 mg p.o. daily hydrochlorothiazide 50 mg p.o. daily Holding lisinopril 40 mg p.o. daily Holding amlodipine 5 mg p.o. daily/home medication Continue labetalol 200 mg p.o. twice daily but decrease to 100 mg twice daily with bleeding EKG/2D echocardiogram and troponin all pending Resp: Acute respiratory insufficiency Large right hemothorax CT thorax currently ordered. Results are pending Chest tube to -40 cm H2O. Noted placed at [facility] by IR 12/19 after holding apixaban 1 day Status post #10 Pashto pigtail catheter placed by interventional radiology at [facility]. 4 L questionable output immediately blood. GI: Gastroesophageal reflux disease History of duodenal gastrointestinal stromal tumor PO diet as tolerated Pantoprazole for GI prophylaxis. On omeprazole 20 mg p.o. daily at home Docusate sodium/senna 1 tablet twice daily for bowel regimen : Goyal catheter if indicated for accurate I's and O's in a critically ill patient Endo: History of gout At home on allopurinol 300 mg p.o. daily. Adjust 100 mg daily Sliding scale insulin if indicated to maintain euglycemia Renal: Chronic kidney disease stage IIIa History of nephrolithiasis Creatinine 1.89 at [facility]. All results are currently pending Monitor urine output Accurate I's and O's Heme: Follicular lymphoma grade IIIa Chronic apixaban use Acute blood loss anemia Thrombocytopenia Leukocytosis History of duodenal gastrointestinal stromal tumor status post resection Patient has been typed and crossed CBC/coags currently pending Patient received K [facility] unknown dosage per oral report at [facility]. Ibrutinib 140 mg daily currently on hold. Holding target specific oral anticoagulant in light of right hemothorax medical oncology following. ID: Monitor for signs and sequelae of infection FEN: Hyponatremia Replace electrolytes as clinically indicated MSK: Osteoarthritis Degenerative joint disease Holding cholecalciferol 1000 units p.o. daily/home medication PT evaluate and treat Access -Utilize peripheral IV in her left vena port with Rivas needle Prophylaxis -GI -pantoprazole -DVT -SCD/holding pharmacological prophylaxis in light of right hemothorax Problem Qualifiers (1) Gastroesophageal reflux disease: Qualified Codes: K21.9 - Gastro-esophageal reflux disease without esophagitis (2) Hypertension: Qualified Codes: I10 - Essential (primary) hypertension (3) Osteoarthritis: Qualified Codes: M19.90 - Unspecified osteoarthritis, unspecified site (4) Non Hodgkin's lymphoma: Qualified Codes: C85.90 - Non-Hodgkin lymphoma, unspecified, unspecified site (5) Leukocytosis: Qualified Codes: D72.829 - Elevated white blood cell count, unspecified (6) Gout: Qualified Codes: M10.9 - Gout, unspecified Chai Fritz MD December 24, 2017 18:07
[2017-12-25] VITALS (9 sets, daily range): BP systolic 96–128; BP diastolic 55–66; PULSE 65–89; RESP 22–24; TEMP 97.7–98.2; O2SAT 94–98
[2017-12-25] MEDS: SODIUM CHLOR 0.9% 1000 ML INJ 1,000 ML IV SCH ×2 (02:03→07:55)
[2017-12-25] MEDS: PIPERACIL-TAZO 3.375 GM PREMIX 50 ML IV SCH ×3 (02:03→13:01)
[2017-12-25] MEDS: CHLORHEXIDINE GLUCONATE 2 % 1 PACK (2 CLOTHS) TOP SCH (04:00)
[2017-12-25] MEDS: VASOPRESSIN INJ 40 UNITS in DEXTROSE 5% IN WATER 100ML INJ 98 ML IV SCH ×2 (05:08)
[2017-12-25] MEDS: AZITHROMYCIN INJ 500 MG in SODIUM CHLOR 0.9% 250 ML INJ 250 ML IV SCH (05:17)
[2017-12-25 06:37] LABS: CREATININE 1.08 MG/DL (0.60-1.30)
[2017-12-25] MEDS: methylPREDNISolone SOD SUCC 125 MG/2 ML VIAL IV PUSH SCH (07:55)
[2017-12-25] MEDS: SODIUM CHLORIDE 0.9% FLUSH 10 ML FLUSH IV FLUSH SCH (07:55)
[2017-12-25] MEDS: ALLOPURINOL 100 MG TAB PO SCH (07:57)
[2017-12-25] MEDS: DOCUSATE SODIUM 50 MG/SENNA 8.6 MG TAB PO SCH (07:57)
[2017-12-25] MEDS: LABETALOL HCL 100 MG TAB PO SCH (07:57)
--- NOTE | 2017-12-25 08:54 | RADRPT ---
EXAM DATE/TIME: 12/25/2017 08:18 [place] COMPARISON: CHEST SINGLE AP, December 23, 2017, 5:00. INDICATIONS : Shortness of breath. MEDICAL HISTORY : Hypertension. Diabetes mellitus type II. Carcinoma, oral cavity. GERD. SURGICAL HISTORY : Colon resection. Chest tube placement. ENCOUNTER: Subsequent ACUITY: 4 - 6 days PAIN SCORE: 0/10 LOCATION: Bilateral chest FINDINGS: A single view of the chest demonstrates right-sided [place] loop thoracostomy tube, stable in position. Bibasilar airspace disease but there may be slight interval improvement compared to the prior. Left s ubclavian [id number] catheter is unchanged in position. Heart size is borderline prominent but wel l compensated. Dextroscoliosis of the dorsal spine with associated degenerative changes. CONCLUSION: 1. Some improved aeration in both lung bases. Bibasilar airspace disease does persist, however. 2. Stable position of right-sided [place] loop thoracostomy catheter. Andrea Bey MD on December 25, 2017 at 8:49 Board Certified Radiologist. This report was verified electronically.
[2017-12-25] MEDS ORDERED: PANTOPRAZOLE SOD 40 MG DELAYED RELEASE TAB PO SCH (09:00)
[2017-12-25] MEDS ORDERED: HYDR50TA3 PO (09:53)
[2017-12-25] MEDS ORDERED: ALLO100T PO (09:53)
[2017-12-25] MEDS ORDERED: APIX2.5T PO (09:53)
[2017-12-25] MEDS ORDERED: LISI-519 PO (09:53)
[2017-12-25] MEDS ORDERED: POTA10TA2 PO (09:53)
[2017-12-25] MEDS ORDERED: MULT400T PO (09:53)
--- NOTE | 2017-12-25 11:47 | PD.ONC.PN ---
Subjective Subjective Remarks Afebrile overnight. Patient resting comfortably in room. Breathing improved. Objective Data Date Time Temp Pulse Resp B/P (MAP) Pulse Ox O2 Delivery O2 Flow Rate FiO2 12/25/17 10:00 89 12/25/17 08:00 Nasal Cannula 3.00 97 12/25/17 08:00 88 12/25/17 08:00 97.7 78 24 121/61 (81) 96 12/25/17 06:00 72 12/25/17 04:00 74 12/25/17 04:00 97.7 74 22 123/66 (85) 95 12/25/17 02:00 88 12/25/17 00:00 72 12/25/17 00:00 98.2 72 24 128/62 (84) 95 12/24/17 23:29 97 Nasal Cannula 3.00 12/24/17 22:00 93 12/24/17 20:00 97.7 104 24 112/55 (74) 94 12/24/17 20:00 104 12/24/17 19:00 97 Nasal Cannula 3.00 12/24/17 16:00 98.3 67 18 101/61 (74) 97 12/24/17 16:00 67 12/24/17 12:00 97.8 83 21 107/59 (75) 93 12/24/17 12:00 83 12/25/17 12/25/17 12/25/17 07:00 15:00 23:00 Intake Total 1380 ml Output Total 400 ml Balance 980 ml Result Diagram: 12/23/17 0530 12/25/17 0520 Laboratory Results Laboratory Tests Test 12/25/17 05:20 Creatinine 1.08 MG/DL Estimat Glomerular Filtration Rate 66 ML/MIN Imaging Studies Last 24 hours Impressions Chest X-Ray 12/25/17 0000 Signed Impressions: Service Date/Time: December 08:18 - CONCLUSION: 1. Some improved aeration in both lung bases. Bibasilar airspace disease does persist, however. 2. Stable position of right-sided [place] loop thoracostomy catheter. Andrea Bey MD Administered Medications Medications (Trade) Dose Ordered Sig/Helio Route PRN Reason Start Time Stop Time Status Last Admin Dose Admin Sodium Chloride (NS Flush) 2 ml BID IV FLUSH 12/20/17 09:00 12/25/17 07:55 Miscellaneous Information ([facility] Nursing Information) 1 Q361D XX 12/20/17 02:00 12/20/17 02:00 Chlorhexidine Gluconate (Chlorhexidine 2% Cloth) Taper DAILY@04 TOP 12/20/17 04:00 12/16/18 03:59 12/23/17 04:00 Senna/Docusate Sodium (Aubree-Colace) 1 tab BID PO 12/20/17 09:00 12/25/17 07:57 Allopurinol (Zyloprim) 100 mg DAILY PO 12/20/17 09:00 12/25/17 07:57 Labetalol HCl (Trandate) 100 mg Q12HR PO 12/20/17 09:00 12/25/17 07:57 Piperacillin Sod/ Tazobactam Sod 50 ml @ 100 mls/hr Q6H IV 12/20/17 08:00 12/25/17 07:55 Azithromycin 500 mg/Sodium Chloride 250 ml @ 250 mls/hr Q24H IV 12/21/17 03:00 12/25/17 05:17 Enoxaparin Sodium (Lovenox Inj) 40 mg Q24H SQ 12/21/17 13:00 12/24/17 13:27 Vancomycin HCl 2000 mg/Sodium Chloride 520 ml @ 250 mls/hr Q48H IV 12/24/17 12:00 12/24/17 12:09 Pantoprazole Sodium (Protonix) 40 mg DAILY PO 12/25/17 09:00 12/25/17 07:57 Objective Remarks GENERAL: Elderly male, upright in chair next to bed in [facility]. SKIN: Warm and dry. HEAD: Normocephalic. EYES: No injection or drainage. NECK: Supple, trachea midline. CARDIOVASCULAR: +S1/S2 RESPIRATORY: occasional rhonchi. GASTROINTESTINAL: Abdomen soft, non-tender, nondistended. EXTREMITIES: No cyanosis, or edema. MUSCULOSKELETAL: Adequate muscle tone. NEUROLOGICAL: awake and alert. normal speech. very hard of hearing. Assessment/Plan Assessment 77-year-old male with history of CLL admitted with respiratory distress, now improving. Plan 1. breathing continues to improve. will reduce solu-medrol to 30mg BID 2. okay to transfer back to [facility] in [place] from oncology perspective. 3. patient will need to follow up with his oncologist upon discharge from the hospital. Shanna Rabago December 25, 2017 11:47
[2017-12-25] MEDS: ENOXAPARIN SODIUM 40 MG/0.4 ML SYRINGE SQ SCH (12:55)
--- NOTE | 2017-12-25 13:11 | HHI.PR ---
Subjective Remarks Follow-up right pleural effusion. Still having significant chest tube drainage. Patient hard of hearing. He still has cough denies chest pain and shortness of breath. Telemetry shows A. fib with controlled ventricular response. Patient cleared for transfer back to [place] by medical oncology and cardiothoracic surgery who stated no surgical intervention needed Objective Vitals Vital Signs Date Time Temp Pulse Resp B/P (MAP) Pulse Ox O2 Delivery O2 Flow Rate FiO2 12/25/17 10:00 89 12/25/17 08:00 Nasal Cannula 3.00 97 12/25/17 08:00 88 12/25/17 08:00 97.7 78 24 121/61 (81) 96 12/25/17 06:00 72 12/25/17 04:00 74 12/25/17 04:00 97.7 74 22 123/66 (85) 95 12/25/17 02:00 88 12/25/17 00:00 72 12/25/17 00:00 98.2 72 24 128/62 (84) 95 12/24/17 23:29 97 Nasal Cannula 3.00 12/24/17 22:00 93 12/24/17 20:00 97.7 104 24 112/55 (74) 94 12/24/17 20:00 104 12/24/17 19:00 97 Nasal Cannula 3.00 12/24/17 16:00 98.3 67 18 101/61 (74) 97 12/24/17 16:00 67 I/O 12/24/17 12/24/17 12/24/17 12/25/17 12/25/17 12/25/17 07:00 15:00 23:00 07:00 15:00 23:00 Intake Total 460 ml 550 ml 1580 ml 1380 ml Output Total 800 ml 845 ml 400 ml Balance -340 ml 550 ml 735 ml 980 ml Intake Oral 460 ml 480 ml 240 ml IV Total 550 ml 1100 ml 1140 ml Output Urine Total 600 ml 525 ml 300 ml Chest Tube Drainage Total 200 ml 320 ml 100 ml # Bowel Movements 0 0 0 Result Diagram: 12/23/17 0530 12/25/17 0520 Imaging Last Impressions Chest X-Ray 12/25/17 0000 Signed Impressions: Service Date/Time: December 08:18 - CONCLUSION: 1. Some improved aeration in both lung bases. Bibasilar airspace disease does persist, however. 2. Stable position of right-sided [place] loop thoracostomy catheter. Andrea Bey MD Chest CT 12/20/17 0000 Signed Impressions: Service Date/Time: Wednesday, December 20, 2017 02:17 - CONCLUSION: Abnormal CT chest appearance. We have no comparisons at this institution. Ted Portillo MD Objective Remarks GENERAL: This is a well-nourished, well-developed patient, in no apparent distress. On 3 L nasal cannula CARDIOVASCULAR: Irregularly irregular no gallops, or rubs. RESPIRATORY: Diminished breath sounds on the right, chest tube in place GASTROINTESTINAL: Abdomen soft, non-tender, nondistended. Positive bowel sounds , MUSCULOSKELETAL: Extremities without clubbing, cyanosis but with bilateral lower extremity pitting edema. Pedal pulses appreciated NEUROLOGICAL: Awake and alert. Moves all extremity. Normal speech.no focal neurological deficit Procedures none A/P Problem List: (1) Hemothorax, right ICD Code: J94.2 - Hemothorax (2) Paroxysmal atrial fibrillation ICD Code: I48.0 - Paroxysmal atrial fibrillation (3) Acute blood loss anemia ICD Code: D62 - Acute posthemorrhagic anemia (4) Gastroesophageal reflux disease ICD Code: K21.9 - Gastro-esophageal reflux disease without esophagitis (5) Hypertension ICD Code: I10 - Essential (primary) hypertension (6) Osteoarthritis ICD Code: M19.90 - Unspecified osteoarthritis, unspecified site (7) Gastrointestinal stromal tumor (GIST) of duodenum ICD Code: C49.A3 - Gastrointestinal stromal tumor of small intestine (8) Non Hodgkin's lymphoma ICD Code: C85.90 - Non-Hodgkin lymphoma, unspecified, unspecified site (9) Hyponatremia ICD Code: E87.1 - Hypo-osmolality and hyponatremia (10) Leukocytosis ICD Code: D72.829 - Elevated white blood cell count, unspecified (11) Essential hypertension ICD Code: I10 - Essential (primary) hypertension (12) Chronic kidney disease, stage 3a ICD Code: N18.3 - Chronic kidney disease, stage 3 (moderate) (13) Gout ICD Code: M10.9 - Gout, unspecified Assessment and Plan This is a 77-year-old male. Full code. Date of admission 12/20/2017. 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 Patient received chemotherapy was noted to have a CD 38 expression by flow cytometry indicative of an unfavorable prognostic Jarvis per report. 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 On chest x- ray patient was noted to have a large right pleural effusion. His apixaban was held and patient had a right-sided chest tube placed. Fluid sent for cultures. Studies are still pending. Patient received K Centra at that facility was transferred here for possible cardiothoracic intervention. Today he is doing better tolerating 3 L nasal cannula. According to , cardiothoracic surgery, no planned surgical intervention as chest tube continues to drain serous fluid. Chest x-ray shows improved aeration. Continue pain management with Lortab and IV morphine. Wean steroids down to 30 mg Solu-Medrol twice a day consider switching to p.o. tomorrow. Will also switch IV antibiotics to Augmentin for a total of 7 days cultures are NGTD Paroxysmal atrial fibrillation with a [id number] VASc score of 3 Essential hypertension Dyslipidemia Stop dronedarone 400 mg p.o. twice daily/home medication per oncology thinking this could be noninfectious pneumonitis from LTAC Holding spironolactone 50 mg p.o. daily hydrochlorothiazide 50 mg p.o. daily Holding lisinopril 40 mg p.o. daily Holding amlodipine 5 mg p.o. daily/home medication Continue labetalol 200 mg p.o. twice daily but decrease to 100 mg twice daily with bleeding Echocardiogram EF of 50% with LVH no clots. Restart Doacs when cleared by hematology/oncology Resp: Acute respiratory insufficiency Large right hemothorax Chest tube to -40 cm H2O. Noted placed at [facility] by IR 12/19 after holding apixaban 1 day Status post #10 [place] pigtail catheter placed by interventional radiology at [facility]. 4 L questionable bloody output immediately GI: Gastroesophageal reflux disease History of duodenal gastrointestinal stromal tumor PO diet as tolerated Pantoprazole for GI prophylaxis. On omeprazole 20 mg p.o. daily at home Docusate sodium/senna 1 tablet twice daily for bowel regimen : Goyal catheter if indicated for accurate I's and O's in a critically ill patient Endo: History of gout At home on allopurinol 300 mg p.o. daily. Adjust 100 mg daily Sliding scale insulin if indicated to maintain euglycemia Renal: Chronic kidney disease stage IIIa History of nephrolithiasis Creatinine 1.89 at [facility]. Improving creatinine 1.08 Monitor urine output Accurate I's and O's Heme: Follicular lymphoma grade IIIa Chronic apixaban use Acute blood loss anemia Thrombocytopenia Leukocytosis History of duodenal gastrointestinal stromal tumor status post resection Patient has been typed and crossed Patient received K Centra unknown dosage per oral report at [facility]. Ibrutinib 140 mg daily currently on hold. Holding target specific oral anticoagulant in light of right hemothorax medical oncology following. ID: Monitor for signs and sequelae of infection FEN: Hyponatremia Replace electrolytes as clinically indicated MSK: Osteoarthritis Degenerative joint disease Holding cholecalciferol 1000 units p.o. daily/home medication PT evaluate and treat Prophylaxis -GI -pantoprazole -DVT -SCD/holding pharmacological prophylaxis in light of right hemothorax Discharge Planning Stable for transfer Problem Qualifiers (1) Gastroesophageal reflux disease: Qualified Codes: K21.9 - Gastro-esophageal reflux disease without esophagitis (2) Hypertension: Qualified Codes: I10 - Essential (primary) hypertension (3) Osteoarthritis: Qualified Codes: M19.90 - Unspecified osteoarthritis, unspecified site (4) Non Hodgkin's lymphoma: Qualified Codes: C85.90 - Non-Hodgkin lymphoma, unspecified, unspecified site (5) Leukocytosis: Qualified Codes: D72.829 - Elevated white blood cell count, unspecified (6) Gout: Qualified Codes: M10.9 - Gout, unspecified Angel Davis MD December 25, 2017 13:11
--- NOTE | 2017-12-25 13:24 | PD.CAR.PN ---
CVT Progress Note Subjective/Hospital Course: Declining CT outputs. No surgical intervention needed. Will sign off. Objective: Vital Signs Date Time Temp Pulse Resp B/P (MAP) Pulse Ox O2 Delivery O2 Flow Rate FiO2 12/25/17 10:00 89 12/25/17 08:00 Nasal Cannula 3.00 97 12/25/17 08:00 88 12/25/17 08:00 97.7 78 24 121/61 (81) 96 12/25/17 06:00 72 12/25/17 04:00 74 12/25/17 04:00 97.7 74 22 123/66 (85) 95 12/25/17 02:00 88 12/25/17 00:00 72 12/25/17 00:00 98.2 72 24 128/62 (84) 95 12/24/17 23:29 97 Nasal Cannula 3.00 12/24/17 22:00 93 12/24/17 20:00 97.7 104 24 112/55 (74) 94 12/24/17 20:00 104 12/24/17 19:00 97 Nasal Cannula 3.00 12/24/17 16:00 98.3 67 18 101/61 (74) 97 12/24/17 16:00 67 Labs: Laboratory Tests Test 12/25/17 05:20 Creatinine 1.08 MG/DL (0.60-1.30) Estimat Glomerular Filtration Rate 66 ML/MIN (>89) Result Diagram: 12/23/17 0530 12/25/17 0520 Laine Dubon MD December 25, 2017 13:24
[2017-12-25] MEDS ORDERED: ENOX40P SQ (14:26)
[2017-12-25] MEDS ORDERED: SOLU125I IV PUSH (14:26)
[2017-12-25] MEDS ORDERED: LABE100T2 PO (14:26)
[2017-12-25] MEDS ORDERED: AMOX875T2 PO (14:26)
--- NOTE | 2017-12-25 14:32 | HHI.DCPOC ---
Discharge Care Plan Diagnosis: (1) Hemothorax, right Your Health Problems Are: Difficulty with ADL Exercise Tolerance Goals to Promote Your Health * To prevent worsening of your condition and complications * To maintain your health at the optimal level Directions to Meet Your Goals Take your medications as prescribed Follow your dietary instruction Follow activity as directed Keep your appointments as scheduled Take your immunizations and boosters as scheduled If your symptoms worsen call your PCP, if no PCP go to Urgent Care Center or Emergency Room Smoking is Dangerous to Your Health. Avoid second hand smoke Call the 24-hour hour crisis hotline for domestic abuse at Angel Davis MD December 25, 2017 14:32
[2017-12-25] MEDS ORDERED: methylPREDNISolone SOD SUCC 125 MG/2 ML VIAL IV PUSH SCH (21:00)
[2017-12-25] MEDS ORDERED: AMOXICILLIN/CLAVULANATE K 875 MG TAB PO SCH (21:00)
[2017-12-28] MEDS ORDERED: PHARMACY ORDERED LAB ONE (11:45)
== END 2017-12-25 17:30 | disposition short-term general hospital (02) | DRG 186 ==
LOC: N03A 12-20 01:20
PROVIDERS: ADMIT Internal Medicine; ATTEND Internal Medicine
DX: J94.2 Hemothorax (principal); J18.9 Pneumonia, unspecified organism; C82.30 Follicular lymphoma grade IIIa, unspecified site; C91.10 Chronic lymphocytic leukemia of B-cell type not having achieved remission; R06.89 Other abnormalities of breathing; E87.1 Hypo-osmolality and hyponatremia; D62 Acute posthemorrhagic anemia; D69.1 Qualitative platelet defects; D69.6 Thrombocytopenia, unspecified; N18.3 Chronic kidney disease, stage 3 (moderate); I48.0 Paroxysmal atrial fibrillation; K21.9 Gastro-esophageal reflux disease without esophagitis; I12.9 Hypertensive chronic kidney disease with stage 1 through stage 4 chronic kidney disease, or unspecified chronic kidney disease; M19.90 Unspecified osteoarthritis, unspecified site; M10.9 Gout, unspecified; E78.5 Hyperlipidemia, unspecified; R42 Dizziness and giddiness; T45.1X5A Adverse effect of antineoplastic and immunosuppressive drugs, initial encounter; J30.9 Allergic rhinitis, unspecified; E66.01 Morbid (severe) obesity due to excess calories; J90 Pleural effusion, not elsewhere classified; Z96.652 Presence of left artificial knee joint; Z85.820 Personal history of malignant melanoma of skin; Z82.3 Family history of stroke; Z82.49 Family history of ischemic heart disease and other diseases of the circulatory system; H91.90 Unspecified hearing loss, unspecified ear; Z79.899 Other long term (current) drug therapy; Z79.01 Long term (current) use of anticoagulants; Z68.39 Body mass index [BMI] 39.0-39.9, adult; Z87.442 Personal history of urinary calculi; Z85.068 Personal history of other malignant neoplasm of small intestine; Z92.21 Personal history of antineoplastic chemotherapy
CPT/HCPCS: 36600; 71045; 71250; 80048; 80053; 80061; 80076; 80202; 81001; 82140; 82150; 82533; 82550; 82565; 82570; 82805; 82945; 82948; 83010; 83036; 83605; 83615; 83690; 83735; 83986; 84100; 84157; 84300; 84439; 84443; 84481; 84484; 84550; 85007; 85014; 85018; 85025; 85027; 85384; 85610; 85730; 86850; 86900; 86901; 86920; 87015; 87040; 87070; 87102; 87116; 87205; 87206; 87449; 87641; 87804; 88112; 88305; 89051; 93005; 93306; 94150; C9113; J0456; J0692; J1650; J2543; J2930; J3370; J7030; J7040; J7050; J7120